=== PATIENT | female | born 1955 | race Caucasian/White ===

== ENCOUNTER 2020-01-12 09:08 | Outpatient (REF) | payer OTHER, SELFPAY ==
--- NOTE | 2020-01-12 09:19 | XR_ITS ---
EXAMINATION: XR HAND, LEFT CLINICAL INFORMATION: Pain left hand, pain left middle finger COMPARISON: Radiographs left hand/finger 07/28/2014 TECHNIQUE: Left hand is imaged in 3 views. FINDINGS: There is no acute or healing fracture, dislocation, destructive process. There is no interval focal joint narrowing or erosive change. No destructive process or periostitis. IMPRESSION: No acute bony abnormality.
== END 2020-01-12 09:09 | disposition home or self-care (01) ==
LOC: HO.XRAY 09:08
PROVIDERS: PCP Internal Medicine Medical Oncology; Visit Provider Internal Medicine Medical Oncology
DX: M79.642 Pain in left hand (principal); M79.645 Pain in left finger(s)
CPT/HCPCS: 73130

== ENCOUNTER 2020-02-23 10:18 | Outpatient (REF) | payer OTHER, SELFPAY ==
--- NOTE | 2020-02-23 | US_ITS ---
EXAMINATION: US ABDOMEN COMPLETE CLINICAL INFORMATION: Abdominal pain. COMPARISON: CT abdomen and pelvis 06/25/2017. Ultrasound abdomen 09/16/2015. TECHNIQUE: Real-time imaging of the abdominal viscera. FINDINGS: PANCREAS: The head and body the pancreas are normal. The tail is not well seen due to bowel gas. ABDOMINAL AORTA: The proximal, mid, and distal segments are normal in caliber. INFERIOR VENA CAVA: Visualized portions are normal. LIVER: Liver echotexture is increased probably representing fatty infiltration. There is a focal hypoechoic area adjacent to the gallbladder, characteristic location of focal fatty sparing. No focal hepatic lesion. There is no intrahepatic biliary duct dilatation seen. GALLBLADDER: There are gallstones in the gallbladder. There is layering echogenic bile seen in the gallbladder. The gallbladder wall appears thickened measuring 0.5 cm. The sleep technologist reports the patient is tender over the gallbladder. The gallbladder is normal in size. There is no pericholecystic fluid. COMMON BILE DUCT: Normal in caliber measuring 0.6 cm in diameter. RIGHT KIDNEY: Normal. No hydronephrosis. No renal calculi or focal parenchymal lesions. The kidney measures 9.7 cm in maximum dimension. LEFT KIDNEY: Normal. No hydronephrosis. No renal calculi or focal parenchymal lesions. The kidney measures 11.1 cm in maximum dimension. SPLEEN: Normal. The spleen measures 8.0 cm in maximum dimension. FREE FLUID: None. US/US abdomen complete IMPRESSION: Echogenic liver suggestive of fatty infiltration. Gallstones. Thickened gallbladder wall questionable for cholecystitis. Limited visualization of the tail the pancreas.
[2020-02-23 13:50] LABS: MANUAL DIFF FLAG NO
[2020-02-23 13:54] LABS: Basophils Percent Auto 0.5 % (0-2); Eosinophils Absolute Auto 0.3 X10*3/uL (0.0-0.4); Eosinophils Percent Auto 5.3 % (0-4); Hematocrit 39.2 % (37-47); Hemoglobin 12.5 g/dl (12.0-16.0); Imm Gran Abs Auto 0.01 X10*3/uL (0.00-0.03); Imm Gran Pct Auto 0.2 % (0.0-0.4); Lymphocytes Absolute Auto 2.5 X10*3/uL (1.2-4.9); Lymphocytes Percent Auto 39.4 % (20-40); Mean Corpuscular HGB Conc 31.9 g/dl (31.0-35.0); Mean Corpuscular Hemoglobin 28.5 pg (27.0-33.0); Mean Corpuscular Volume 89.3 fL (80-98); Mean Platelet Volume 10.9 fL (9.4-12.3); Monocytes Absolute Auto 0.6 X10*3/uL (0.1-1.2); Monocytes Percent Auto 8.9 % (2-11); Neutrophils Absolute Auto 2.9 X10*3/uL (2.0-8.3); Neutrophils Percent Auto 45.7 % (45-73); Platelet Count 281 X10*3/uL (160-400); Red Blood Count 4.39 X10*6/uL (4.20-5.50); Red Cell Distribution Width 13.2 % (11.0-16.0); White Blood Count 6.3 X10*3/uL (4.8-10.8)
[2020-02-23 14:49] LABS: Alanine Aminotransferase 23 U/L (0-31); Albumin Level 4.3 g/dL (3.5-5.0); Alkaline Phosphatase 85 U/L (39-117); Anion Gap 11 (12-20); Aspartate Amino Transferase 21 U/L (5-31); Bilirubin Total 0.5 mg/dL (0.0-1.0); Blood Urea Nitrogen 14 mg/dL (9-16); Calcium 8.9 mg/dL (8.4-10.2); Carbon Dioxide 29 mmol/L (22-29); Chloride 105 mmol/L (96-108); Cholesterol 239 mg/dL; Estimated Glomerular Filt Rate > 60; Glucose Fasting 78 mg/dL (60-99); HDL Cholesterol 59 mg/dL; LDL Cholesterol Calculated 157 mg/dl; Potassium 4.4 mmol/l (3.3-5.1); Sodium 141 mmol/L (135-145); Total Protein 7.6 g/dL (6.5-8.0); Triglycerides 118 mg/dL
== END 2020-02-23 10:19 | disposition home or self-care (01) ==
LOC: HO.HMGCX 10:18
PROVIDERS: PCP Internal Medicine Medical Oncology; Visit Provider Internal Medicine Medical Oncology
DX: E78.5 Hyperlipidemia, unspecified (principal); E66.9 Obesity, unspecified; R10.9 Unspecified abdominal pain
CPT/HCPCS: 36415; 76700; 80053; 80061; 85025

== ENCOUNTER → 2020-03-15 12:40 | Outpatient (REF) | payer OTHER, SELFPAY ==
--- NOTE | 2020-03-15 | NM_ITS ---
EXAMINATION: HIDA SCAN. CLINICAL INFORMATION: Right upper quadrant pain. Gallstones. COMPARISON: Ultrasound abdomen complete 02/23/2020 TECHNIQUE: Following intravenous administration of 5 mCi of 90 9M technetium mebrofenin, imaging over right upper quadrant was obtained up to 120 minutes. FINDINGS: There is normal hepatic uptake without any focal defect. There is prompt visualization of common bile duct 20 minutes and small bowel by 23 minutes. Gallbladder is not visualized up to twice. No CCK was given. No delayed images were obtained as patient preferred to leave NM/NM hepatobiliary wo pharm IMPRESSION: Normal hepatic uptake. Patent CBD. Cystic duct was not visualized up to 2 hours likely secondary to chronic cholecystitis. No delayed images obtained.
== END ==
LOC: HO.NUCMED 12:40
PROVIDERS: Visit Provider Internal Medicine Medical Oncology
DX: R10.11 Right upper quadrant pain (principal); K80.20 Calculus of gallbladder without cholecystitis without obstruction
CPT/HCPCS: 78226; A9537

== ENCOUNTER → 2020-03-24 09:03 | Outpatient (BNVA) | payer OTHER, SELFPAY | PROVIDERS: PCP Internal Medicine Medical Oncology; Visit Provider Surgery | DX: Z76.89 Persons encountering health services in other specified circumstances (principal) ==

== ENCOUNTER 2020-03-30 08:40 | Day surgery (SDC) | payer OTHER, SELFPAY ==
[2020-03-29 11:48] VITALS: BMI 31.2
--- NOTE | 2020-03-29 13:15 | HO.ANESPROP2 ---
Documented by User: Shweta Sotelo 03/29/20 13:18 HPI - Anesthesia Eval Consult details Narrative: 64yo F for Cholecystectomy Laparoscopic PMFSH Past Medical History Medical History History of pneumonia Hyperlipidemia Family History Family History Mother Breast cancer metastasized to bone Father Diabetes Paternal Uncle Colon cancer, Onset Age: 49 Paternal Uncle Pancreatic cancer Surgical History Surgical History History of breast lump/mass excision History of knee surgery History of tonsillectomy History of tubal ligation Social History Social History Smoking Status: Never smoker Second Hand Smoke Exposure: No Use of substances other than those prescribed or required for medical reasons: No Advance Directives: No Advance Directives Information Provided: No Advance Directives on File: No Meds Allergies Allergy/AdvReac Type Severity Reaction Status Date / Time codeine [CODEINE] Allergy Unknown HIVES Verified 03/30/20 08:47 Home Medications Medication Instructions Recorded Confirmed Type albuterol sulfate 90 mcg/actuation 2 puff INHALATION Q6H PRN 03/24/20 03/24/20 History aerosol inhaler loratadine 10 mg tablet 10 mg PO DAILY 03/24/20 03/24/20 History omeprazole 40 mg capsule,delayed 40 mg PO DAILY 03/24/20 03/24/20 History release Exam Exam Date and Time: March 29, 2020 1315 Height,Weight and Vital Signs: Height 5 ft 1 in Weight 75 kg Pertinent Lab Results Pertinent Lab Results: Laboratory Tests 02/23/20 02/23/20 11:15 11:15 WBC 6.3 Hgb 12.5 Hct 39.2 Plt Count 281 Sodium 141 Potassium 4.4 Chloride 105 Carbon Dioxide 29 BUN 14 Creatinine 0.81 Assessment and Plan Assessment Anesthesia Assessment: Chart Reviewed Documented by User: Jean Marie Dasilva 03/30/20 11:22 [facility] Past Medical History Medical History History of pneumonia Hyperlipidemia Family History Family History Mother Breast cancer metastasized to bone Father Diabetes Paternal Uncle Colon cancer, Onset Age: 49 Paternal Uncle Pancreatic cancer Family history of problems with anesthesia: No Surgical History Surgical History History of breast lump/mass excision History of knee surgery History of tonsillectomy History of tubal ligation History of Problems with Anesthesia: No Social History Social History Smoking Status: Never smoker Second Hand Smoke Exposure: No Use of substances other than those prescribed or required for medical reasons: No Advance Directives: No Advance Directives Information Provided: No Advance Directives on File: No Meds Allergies Allergy/AdvReac Type Severity Reaction Status Date / Time codeine [CODEINE] Allergy Unknown HIVES Verified 03/30/20 08:47 Home Medications Medication Instructions Recorded Confirmed Type albuterol sulfate 90 mcg/actuation 2 puff INHALATION Q6H PRN 03/24/20 03/24/20 History aerosol inhaler loratadine 10 mg tablet 10 mg PO DAILY 03/24/20 03/24/20 History omeprazole 40 mg capsule,delayed 40 mg PO DAILY 03/24/20 03/24/20 History release Exam Airway Mallampati Class: I TM Dist: >3cm Neck ROM: Full Loose/Missing/Broken Teeth: No Heart: ok Lungs: ok Assessment and Plan Assessment Anesthesia Assessment: Anesthesia Plan Discussed and Chart Reviewed Final Anesthetic Review NPO: Yes ASA Class: II Final Preanesthetic Review: No Changes in Pt Med Stat, Meds/Allgs Chart Reviewed, Consent Obtained/Reviewed and Anes Risks/Benef Reviewed Patient Risk: Low Procedure Risk: Intermediate Anesthetic Plan Anesthetic Plan: GA and Agree w/ Assess. and Plan Disposition: Standard PACU
[2020-03-30] VITALS (14 sets, daily range): BP systolic 132–179; BP diastolic 56–86; PULSE 55–77; RESP 16–18; TEMP 36.2–36.9; O2SAT 93–98
[2020-03-30] MEDS: Acetaminophen 325 MG TABLET 650 MG PO (09:22)
[2020-03-30] MEDS: Lactated Ringers 1,000 ML 100 ML IVCONT (09:24)
--- NOTE | 2020-03-30 09:25 | MHC.SHP ---
Pre-Procedural Eval Section A The patient is an INPATIENT: No Changes since office visit: Yes Patient answered all questions; No Cold of Flu in the past 2 weeks, No New Medical Problems and No Changes in Medication The History & Physical has been completed within 30 days and I have reviewed it.: Yes Section B Chief Complaint: Chronic calculous cholecystitis Allergies: Allergies Allergy/AdvReac Type Severity Reaction Status Date / Time codeine [CODEINE] Allergy Unknown HIVES Verified 03/30/20 08:47 Plan I have reviewed the history and physical and performed a pertinent physical examination on my patient. No changes have occurred unless specified.
--- NOTE | 2020-03-30 13:11 | W.PM.OPN ---
Operative Note Operative Note Date of Service: 03/30/20 Narrative: Preoperative diagnosis: chronic calculous cholecystitis Postoperative diagnosis: Same Procedure: Laparoscopic cholecystectomy Outsewer: None Anesthesia: General endotracheal Specimen: Gallbladder Estimated blood loss: 10 cc Immediate complications: None Indications: This is a 64-year-old female with a history of intermittent episodes of upper abdominal pain. Workup revealed gallstones with thickening of the gallbladder wall. Procedure in detail: With patient in the supine position after induction of adequate general anesthesia, the abdomen was prepped with ChloraPrep and was draped sterilely. Time-out procedure was performed. Each trocar site was infiltrated with local anesthetic prior to making incisions. A short vertical incision was made beginning in the inferior aspect of the umbilicus and continuing inferiorly for a length of about 12 mm. The incision was deepened down to the level of the fascia. The fascia was elevated in the midline with Georgina clamp and holding sutures of 0 Polysorb were placed on either side. The Georgina was then released and the fascia was split in the midline. The peritoneal cavity was entered. The Zhang trocar was inserted and stabilized with the fascial sutures. The abdomen was insufflated with carbon dioxide to pressure 15 mm of mercury. The 0 degree 5 mm laparoscopic was inserted and the peritoneal cavity was visualized. No abnormalities were noted. The patient was repositioned in reverse Trendelenburg and was rotated slightly left side down. 5 mm trocars were placed just to the right of the midline about a quarter of the way between the xiphoid and umbilicus, in approximately the midclavicular line a few cm below the costal margin and in the anterior axillary line just below the costal margin. The omentum was swept caudad using a Tabby dissector inserted through the upper medial trocar. The gallbladder was visualized. It appeared slightly thickened. There was some adherent omentum. It was grasped along the fundus at the anterior liver margin using a blunt grasper and was retracted cephalad. Adhesions between omentum and gallbladder were taken down with a combination of gentle blunt and cautery dissection. There was no significant bleeding. A 2nd blunt grasper was then placed along the infundibulum and the gallbladder was retracted laterally. Dissection was initiated on the anterior aspect of the infundibulum and was carried medially to expose the cystic duct gallbladder junction. The cystic duct was dissected free circumferentially. It appeared that there is a small branch of cystic artery running along the anterior aspect of the cystic duct. Dissection was carried posteriorly and along the medial margin of the gallbladder. A posterior branch of cystic artery was identified and also was dissected free circumferentially. The anterior aspect of the gallbladder and cystic duct was then again inspected and the anterior branch of cystic artery was carefully dissected free from the cystic duct. It was doubly clipped along the medial aspect, singly clipped along the gallbladder side and divided between clips. The cystic duct was inspected. It appeared wide. The 5 mm clips were not adequate to fully occlude the cystic duct. The extra-large clips were employed. The laparoscopic was removed and reinserted through the upper medial trocar and the extra large clip black top raker was inserted through the Zhang trocar and advanced into the right upper quadrant. The cystic duct was then triply clipped along the patient's side, doubly clipped along the gallbladder side and divided between clips. The clip black top raker was then removed and the laparoscopic was placed back through the has son. The posterior branch of cystic artery was divided with 2 5 mm clips placed on the patient's side and 1 on the gallbladder side. The artery was then divided between clips. The gallbladder was dissected free from the liver bed using the cautery hook. One additional small branch of artery was identified posteriorly and was divided between clips. No significant bleeding was encountered. Before the gallbladder was completely freed, the liver bed was inspected and irrigated with saline solution. Clips were intact on the cystic duct and cystic artery stumps. There was no evidence of bleeding. The remaining attachments between gallbladder and liver bed were divided using the cautery hook. The laparoscopic was placed back through the upper medial trocar and the specimen pouch was inserted through the umbilical trocar and advanced into the right upper quadrant. The gallbladder was placed into the pouch and the pouch was closed and withdrawn along with the Zhang trocar. The Zhang was then reinserted and the laparoscope was placed back through it. Gallbladder bed was again inspected and irrigated with saline solution. Clips again were noted to be intact and there was no evidence of bleeding. Patient was returned to the supine position. Upper abdominal trocars were removed under direct vision. No bleeding was seen. Insufflation was discontinued and gas was let is given the peritoneal cavity. The Zhang trocar was removed. Fascia at the Zhang site was closed with a hhtcyh-yc-eomdo suture of 0 Polysorb and the holding sutures were tied together. Skin incisions were closed with subcuticular sutures of 4-0 Polysorb. Steri-Strips and dry sterile dressings were applied. She tolerated the procedure well and was transported to the recovery room in stable condition. There were no immediate complications.
[2020-03-30] MEDS: Ketorolac Tromethamine 15 MG/ML VIAL IVPUSH (14:25)
[2020-03-30] MEDS: fentaNYL citrate/PF 100 MCG/2 ML VIAL 25 MCG IVPUSH (15:07)
== END 2020-03-30 16:50 | disposition home or self-care (01) ==
PROVIDERS: PCP Internal Medicine Medical Oncology; Visit Provider Surgery
PROC: 0FT44ZZ Resection of Gallbladder, Percutaneous Endoscopic Approach (ICD-10-PCS; CPT 47562; principal; 2020-03-30 10:10)
DX: K80.10 Calculus of gallbladder with chronic cholecystitis without obstruction (principal); K82.8 Other specified diseases of gallbladder; Z88.8 Allergy status to other drugs, medicaments and biological substances; Z98.51 Tubal ligation status
CPT/HCPCS: 47562; 88304; J1100; J1885; J2405; J3010

== ENCOUNTER → 2020-04-07 10:48 | Outpatient (BNVA) | payer OTHER, SELFPAY | PROVIDERS: PCP Internal Medicine Medical Oncology; Visit Provider Surgery | DX: Z76.89 Persons encountering health services in other specified circumstances (principal) ==

== ENCOUNTER 2020-10-06 10:46 | Outpatient (REF) | payer OTHER, SELFPAY ==
[2020-10-06 11:25] LABS: MANUAL DIFF FLAG NO
[2020-10-06 11:29] LABS: Basophils Percent Auto 0.5 % (0-2); Eosinophils Absolute Auto 0.1 X10*3/uL (0.0-0.4); Eosinophils Percent Auto 1.2 % (0-4); Hematocrit 43.3 % (37-47); Hemoglobin 13.7 g/dl (12.0-16.0); Imm Gran Abs Auto 0.01 X10*3/uL (0.00-0.03); Imm Gran Pct Auto 0.2 % (0.0-0.4); Lymphocytes Absolute Auto 1.7 X10*3/uL (1.2-4.9); Lymphocytes Percent Auto 28.6 % (20-40); Mean Corpuscular HGB Conc 31.6 g/dl (31.0-35.0); Mean Corpuscular Hemoglobin 28.1 pg (27.0-33.0); Mean Corpuscular Volume 88.9 fL (80-98); Mean Platelet Volume 10.7 fL (9.4-12.3); Monocytes Absolute Auto 0.5 X10*3/uL (0.1-1.2); Monocytes Percent Auto 8.4 % (2-11); Neutrophils Absolute Auto 3.7 X10*3/uL (2.0-8.3); Neutrophils Percent Auto 61.1 % (45-73); Platelet Count 254 X10*3/uL (160-400); Red Blood Count 4.87 X10*6/uL (4.20-5.50); Red Cell Distribution Width 13.2 % (11.0-16.0)
[2020-10-06 12:01] LABS: Alanine Aminotransferase 24 U/L (0-31); Albumin Level 4.3 g/dL (3.5-5.0); Alkaline Phosphatase 81 U/L (39-117); Anion Gap 12 (12-20); Aspartate Amino Transferase 22 U/L (5-31); Bilirubin Total 0.6 mg/dL (0.0-1.0); Blood Urea Nitrogen 8 mg/dL (9-16); Calcium 9.8 mg/dL (8.4-10.2); Carbon Dioxide 29 mmol/L (22-29); Chloride 105 mmol/L (96-108); Cholesterol 210 mg/dL; Estimated Glomerular Filt Rate 60; Glucose Fasting 98 mg/dL (60-99); HDL Cholesterol 49 mg/dL; LDL Cholesterol Calculated 137 mg/dl; Potassium 4.1 mmol/L (3.3-5.1); Sodium 142 mmol/L (135-145); Total Protein 7.7 g/dL (6.5-8.0); Triglycerides 121 mg/dL
[2020-10-06 12:23] LABS: Vitamin D 25-OH Total 29.3 ng/mL (>30)
== END 2020-10-06 10:47 | disposition home or self-care (01) ==
LOC: HO.LAB 10:46
PROVIDERS: PCP Internal Medicine Medical Oncology; Visit Provider Internal Medicine Medical Oncology
DX: E66.9 Obesity, unspecified (principal); E78.5 Hyperlipidemia, unspecified
CPT/HCPCS: 36415; 80053; 80061; 82306; 85025

== ENCOUNTER 2020-10-13 11:58 | Outpatient (REF) | payer OTHER, SELFPAY | END 2020-10-13 11:59 | disposition home or self-care (01) | LOC: HO.LNP 11:58 | PROVIDERS: Visit Provider Internal Medicine Medical Oncology | DX: Z12.4 Encounter for screening for malignant neoplasm of cervix (principal) | CPT/HCPCS: 88142 ==

== ENCOUNTER 2021-04-07 16:07 | Outpatient (REF) | payer OTHER, SELFPAY ==
--- NOTE | ~2021-04-07 | XR_ITS ---
EXAMINATION: XR CHEST CLINICAL INFORMATION: Pneumonia. COMPARISON: Chest x-ray 09/04/2018. CT scan abdomen pelvis 06/25/2017 TECHNIQUE: 2 views of the chest were obtained. FINDINGS: Persistent large hiatal hernia. No acute airspace disease. No pleural effusion or pneumothorax. Heart size is normal. No pulmonary vascular congestion. Surgical clips right upper quadrant of abdomen XR/XR chest 2V IMPRESSION: No acute abnormality of chest. Persistent large hiatal hernia.
== END 2021-04-07 16:08 | disposition home or self-care (01) ==
LOC: HO.XRAY 16:07
PROVIDERS: PCP Internal Medicine Medical Oncology; Visit Provider Internal Medicine Medical Oncology
DX: J18.9 Pneumonia, unspecified organism (principal)
CPT/HCPCS: 71046

== ENCOUNTER 2022-01-19 16:33 | Outpatient (REF) | payer OTHER, SELFPAY ==
[2022-01-19 18:19] LABS: Appearance Urine Clear; Color Urine Dark Yellow; Glucose Urine UA Negative (Negative); Leukocyte Esterase Urine Moderate (2+) (Negative); Nitrite Urine Positive (Negative); PH 5.5 (5.0-9.0); UMIC TRIGGER UA YES; Urine Blood Negative (Negative); Urine Ketones Negative (Negative); Urine Protein Trace mg/dL (Neg-Trace)
[2022-01-19 18:24] LABS: Bacteria Urine 1+ (None Seen); Hyaline Casts Urine 0-2 /LPF (0-2); RBC Urine 0-2 /HPF (0-2); WBC Urine 21-50 /HPF (0-5)
== END 2022-01-19 16:34 | disposition home or self-care (01) ==
LOC: HO.LAB 16:33
PROVIDERS: PCP Internal Medicine Medical Oncology; Visit Provider Internal Medicine Medical Oncology
DX: N39.0 Urinary tract infection, site not specified (principal)
CPT/HCPCS: 81001; 87086; 87088; 87186

== ENCOUNTER 2022-03-28 17:23 | Outpatient (REF) | payer OTHER, SELFPAY ==
--- NOTE | ~2022-03-28 | XR_ITS ---
EXAMINATION: XR CHEST CLINICAL INFORMATION: Persistent cough COMPARISON: 04/07/2021 TECHNIQUE: 2 views of the chest were obtained. FINDINGS: No convincing evidence for an acute process. The lung machuca are felt to be comparable to previous. Probable bowel herniation on the left is once again noted. The cardiac silhouette is comparable. The hilar structures are comparable. No evidence for an acute infiltrate or effusion. XR/XR chest 2V IMPRESSION: No acute finding
== END 2022-03-28 17:24 | disposition home or self-care (01) ==
LOC: HO.XRAY 17:23
PROVIDERS: PCP Internal Medicine Medical Oncology; Visit Provider Internal Medicine Medical Oncology
DX: R05.3 Chronic cough (principal); U07.1 COVID-19
CPT/HCPCS: 71046

== ENCOUNTER 2023-02-18 11:21 | Outpatient (REF) | payer OTHER, MEDICARE, SELFPAY ==
--- NOTE | ~2023-02-18 | XR_ITS ---
EXAMINATION: XR CHEST CLINICAL INFORMATION: Acute cough COMPARISON: March 28, 2022 TECHNIQUE: 2 views of the chest were obtained. FINDINGS: There is no gross pneumothorax. Stable cardiomediastinal silhouette partially obscured by asymmetrically elevated left lung base. Redemonstration of elevated left lung base with retrocardiac lucencies again seen, possibly related to the large hiatal hernia identified on CT scan of the abdomen and pelvis of June 25, 2017. No pleural effusion. Degenerative changes in the thoracic spine. Surgical clips in the right upper quadrant of the abdomen. No gross focal consolidation to suggest pneumonia. XR/XR chest 2V IMPRESSION: 1. No evidence of pneumonia. 2. Redemonstration of elevated left lung base with retrocardiac lucencies again seen, possibly related to the large hiatal hernia identified on CT scan of the abdomen and pelvis of June 25, 2017. CT scan should be considered for further evaluation. This study was presented today February 18, 2023 at 1:10 PM for interpretation. Stat results provided at this time as requested by referring provider.
== END 2023-02-18 11:22 | disposition home or self-care (01) ==
LOC: HO.XRAY 11:21
PROVIDERS: PCP Internal Medicine Medical Oncology; Visit Provider Internal Medicine Medical Oncology
DX: R05.1 Acute cough (principal)
CPT/HCPCS: 71046

== ENCOUNTER 2023-03-12 08:31 | Outpatient (REF) | payer OTHER, MEDICARE, SELFPAY ==
[2023-03-12 09:23] LABS: Blood Urea Nitrogen 11 mg/dL (9-16); Estimated Glomerular Filt Rate > 60
== END 2023-03-12 08:32 | disposition home or self-care (01) ==
LOC: HO.LAB 08:31
PROVIDERS: PCP Internal Medicine Medical Oncology; Visit Provider Surgery
DX: K44.9 Diaphragmatic hernia without obstruction or gangrene (principal)
CPT/HCPCS: 36415; 82565; 84520

== ENCOUNTER 2023-03-13 12:35 | Outpatient (REF) | payer OTHER, MEDICARE, SELFPAY ==
--- NOTE | ~2023-03-13 | CT_ITS ---
EXAMINATION: CT ABDOMEN WITH CONTRAST CLINICAL INFORMATION: Paraesophageal hernia COMPARISON: CT scan abdomen and pelvis 06/25/2017 TECHNIQUE: Contiguous axial thin section helical images of the abdomen were performed following the administration of oral contrast and 85 mL of Omnipaque 350 intravenous contrast. The data set was reformatted in the coronal and sagittal planes and reviewed on an independent workstation. This CT examination was performed using dose optimization techniques as appropriate, variously including the following: *Automated exposure control *Adjustment of mA and/or kV according to patient size (this includes techniques or standardized protocols for targeted exams where dose is matched to indication/reason for exam; i.e. extremities or head) *Use of iterative reconstruction technique DLP: 328.5 mGy-cm FINDINGS: LUNG BASES: There is atelectasis at the left lung base. There is herniation of the entire stomach which lies above the left hemidiaphragm with an opening in the left hemidiaphragm measuring 2.7 cm (11:49) LIVER, GALLBLADDER, AND BILIARY TREE: There is diffuse decreased attenuation of the liver compared to the spleen consistent with hepatic steatosis. The patient is status post cholecystectomy with surgical clips in the gallbladder fossa. The common duct measures 0.9 cm. PANCREAS: The pancreas is normal in appearance. SPLEEN: The spleen is normal size and appearance. ADRENAL GLANDS AND KIDNEYS: The adrenal glands and kidneys are normal. BOWEL LOOPS: There is no dilatation of large or small bowel. There is a large amount of stool within the visualized portions of the transverse and descending colon raising the question of constipation. There is slight diverticulosis without evidence of diverticulitis. LYMPH NODES: No abdominal lymphadenopathy. VASCULAR: The abdominal aorta is normal caliber with slight calcification indicative of atherosclerotic disease. BONES: No destructive bony lesion. CT/CT abdomen w IV con IMPRESSION: 1. 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 2. Hepatic steatosis. 3. Diverticulosis without evidence of diverticulitis. 4. Large amount of stool within the visualized portions of the transverse and descending colon raising the question of constipation. Fleischner guidelines were followed.
[2023-03-13] MEDS: iohexoL 350 MG/ML 100 ML INFUS..BTL IV (14:44)
[2023-03-13] MEDS: Barium Sulfate Oral (Berry) 450 ML ORAL.SUSP PO (14:45)
== END 2023-03-13 12:36 | disposition home or self-care (01) ==
LOC: HO.CT 12:35
PROVIDERS: PCP Internal Medicine Medical Oncology; Visit Provider Surgery
DX: K44.9 Diaphragmatic hernia without obstruction or gangrene (principal)
CPT/HCPCS: 71260; 74160; Q9967

== ENCOUNTER 2024-03-21 13:42 | Emergency (ER) | payer OTHER, SELFPAY ==
[2024-03-21] VITALS (10 sets, daily range): BP systolic 142–184; BP diastolic 80–126; PULSE 63–107; RESP 15–20; TEMP 36.4–36.9; O2SAT 95–99; BMI 33.2
--- NOTE | ~2024-03-21 | CT_ITS ---
CLINICAL HISTORY: dizziness, L sided numbness, off balance CT angiography of the head and neck with contrast. With MIP MPR Postprocessing. (with noncontrast head CT) Comparison: None Findings: Head CT without: No acute intracranial hemorrhage, midline shift, hydrocephalus. Basal ganglia calcifications noted. Gonzalez matter-white matter differentiation is adequate with question minimal white matter changes by CT. Cerebellar tonsils terminate at the level of the foramen magnum with mild crowding of the contents in the foramen magnum. No acute skull fracture. CTA head: No ICA or M1 occlusion. Anterior communicating artery is patent. Variant proximal MOHSEN and MCA branching. The basilar artery is patent. Proximal farm equipment service technician are unremarkable for technique and venous contamination. No opacified proximal intracranial arterial aneurysm. Metal and lucencies associated with multiple remaining imaged teeth. Neck: No significant stenosis of either internal carotid artery by NASCET criteria. Calcified and noncalcified plaque include aorta, carotid bulbs common carotid bifurcations. Left vertebral artery is dominant. Mild stenosis of the origin of both vertebral arteries. Retropharyngeal course of the right ICA. Streak artifacts secondary to metal of the mouth stenosis dental amalgam. Mild scarring motion of the lung apices with question mild edema or pneumonitis. Mild reversal cervical lordosis. IMPRESSION: Head CT without: No acute intracranial abnormality by CT CTA head: 1. No ICA or M1 occlusion. 2. The basilar artery is patent. Neck: 1. No significant stenosis of either internal carotid artery by NASCET criteria. 2. Calcified and noncalcified plaque include carotid bulbs and bilateral carotid bifurcations. 3. The left vertebral artery is dominant. 4. Retropharyngeal course of the right ICA. This document has been electronically signed by: Jose Quigley MD on 03/21/2024 21:13:42
--- NOTE | 2024-03-21 13:58 | ECG_ITS ---
Test Reason : DIZZINESS Blood Pressure : / mmHG Vent. Rate : 074 BPM Atrial Rate : 074 BPM P-R Int : 138 ms QRS Dur : 080 ms QT Int : 418 ms P-R-T Axes : 056 -05 030 degrees QTc Int : 463 ms Normal sinus rhythm Normal ECG No previous ECGs available Referred By: Generic ED Physician Electronically Signed By:Praveen Benjamin
--- NOTE | 2024-03-21 13:58 | PC.NURSE ---
to ED from home via EMS. pt has been feeling unwell for a few days and reports AGUILAR and dizziness. No CP or SOB. Today, pt noticed left facial numbness that goes down to her left leg. Lying in stretcher pt denies AGUILAR and dizziness and says the numbness comes and goes. EMS 20gIV in Left AC. No facial droop noted nor slurred speech. Pt speaking in full and complete sentences. Hand grasp equal bilaterally, no neurological deficits noted.
--- NOTE | 2024-03-21 14:21 | ED.NEUROSD ---
HPI - Neuro Symptoms/Deficit General Chief Complaint: Neuro Symptoms/Deficit Stated Complaint: LT SIDE FACE NUMB,-FAST Time Seen by Provider: 03/21/24 14:17 Source: patient and EMS Mode of arrival: EMS Limitations: no limitations History of Present Illness ED Provider: BARRY SADLER Narrative: 68 yo female with PMH of GERD, asthma, bronchitis, recent estrellita fundoplication with revision after stitch popped here with c/o 2 falls this month from dizziness never sought care then for past 3 days feels weird like her L side is off, dizziness and not herself. She has headache as well as L sided neck pain but denies new trauma/neck manipulation. She then noted this AM she started to feel tingling in L face and that her words were slurring but also then her face would twitch at the mouth her daughter notes she told her she had symptoms but then daughter admits she never saw them. No thinner use and was dx with HTN by PCP a month + ago and she was supposed to take metoprolol 25mg but she hasn't taken it in weeks she thought her initial fall was due to it and causing her to be dizzy Onset (ago): day(s) (few) Location: speech, left face, left arm, left leg and other (dizziness) History of same: No Severity: moderate Quality: tingling Relieving factors: none Exacerbating factors: none Context: recent fall On Anticoagulants: No Associated symptoms: denies other symptoms Treatments Prior to Arrival: none Related Data Home Medications ?Medication ?Instructions ?Recorded ?Confirmed albuterol sulfate 90 mcg/actuation 2 puff inhalation Q6H PRN 03/24/20 03/24/20 aerosol inhaler (Proventil HFA) loratadine 10 mg tablet (Allergy 10 mg PO DAILY 03/24/20 03/24/20 Relief (loratadine)) omeprazole 40 mg capsule,delayed 40 mg PO DAILY 03/24/20 03/24/20 release Previous Rx's ?Medication ?Instructions ?Recorded hydromorphone 2 mg tablet 2 mg PO Q4H PRN pain #10 tabs 03/30/20 Allergies Allergy/AdvReac Type Severity Reaction Status Date / Time codeine [CODEINE] Allergy Unknown HIVES Verified 03/21/24 13:57 Review of Systems Review of Systems: Constitutional : No Fever, No Chills, No Fatigue ENT/Mouth : No sore throat, No Rhinorrhea Eyes: No Eye Pain, No Swelling, No Redness Cardiovascular : No Chest Pain, No SOB, No Dyspnea on Exertion Respiratory : No Cough, No Sputum Gastrointestinal : No Nausea, No Vomiting, No Diarrhea, No abdominal Pain Genitourinary : No Dysuria, No Urinary Frequency, No Hematuria, Musculoskeletal : No joint pain, No Myalgias, No Joint Swelling Skin : No Skin Lesions, No rash Neuro : No Weakness, pos Numbness, pos Dizziness, positive Headache All other systems reviewed and are negative [facility] Past Medical History Attestation statement: The following information was validated with the patient. Source: old records reviewed Medical History Hyperlipidemia History of pneumonia Surgical History History of laparoscopic cholecystectomy History of breast lump/mass excision History of knee surgery History of tubal ligation History of tonsillectomy Family History Family History Mother Breast cancer metastasized to bone Father Diabetes Paternal Uncle Colon cancer, Onset Age: 49 Paternal Uncle Pancreatic cancer Social History Social History Smoked in Last 30 Days: No Second Hand Smoke Exposure: No Use of substances other than those prescribed or required for medical reasons: No Advance Directives: No Advance Directives Information Provided: Yes Physical Exam Vital Signs: Vital Signs: Last Vital Signs Temp 97.5 F 03/21/24 16:27 Pulse 70 03/21/24 16:27 Resp 15 03/21/24 16:27 BP 142/102 H 03/21/24 16:27 Pulse Ox 95 03/21/24 16:27 O2 Del Method Room Air 03/21/24 16:27 BMI result Body Mass Index 33.2 Appearance: Alert. Oriented X3. No acute distress. Eyes: Pupils equal, round and reactive to light. ENT: Pharynx normal. Neck: Normal inspection. Neck supple. CVS: Normal heart rate and rhythm. Pulses normal. Respiratory: No respiratory distress. Breath sounds normal. Abdomen: Soft and nontender. Skin: Skin warm and dry. Normal skin color. Normal skin turgor. Extremities: No lower extremity edema. No calf ttp Neuro: Oriented X 3. No motor deficit. No sensory deficit. Course Course Course Narrative: signed out to Dr. Liao pending workup Medical Decision Making Medical Decision Making [facility] Narrative: 68 yo female with PMH of GERD, asthma, bronchitis, HTN here with c/o 2 falls in one month due to dizziness took herself off metoprolol though BP has been high, today L sided facial contractures and tingling at this time she is NIH 0 on exam but her symptoms coming and going with elevated BP though not terribly high 150/100 this could be lyte abnormality, TIA, mass. I have ordered labs, EKG, CT scans for possible stroke, dissection. Differential Diagnosis Differential Diagnoses: The differential diagnosis associated with the presentation includes HTN, TIA, migraine, vert disssection Admission/Observation Consideration of admission/observation: Escalation of care including admission/observation considered Lab Data [facility] Lab Attestation statement: I reviewed the patient's lab results. 03/21/24 14:53 03/21/24 14:53 Labs: Lab Results 03/21/24 Range/Units 14:53 WBC 5.9 (4.8-10.8) X10*3/uL RBC 4.43 (4.20-5.50) X10*6/uL Hgb 12.3 (12.0-16.0) g/dl Hct 37.6 (37.0-47.0) % MCV 84.9 (80.0-98.0) fL MCH 27.8 (27.0-33.0) pg MCHC 32.7 (31.0-35.0) g/dl RDW 14.1 (11.0-16.0) % Plt Count 294 (160-400) X10*3/uL MPV 10.0 (9.4-12.3) fL Immature Gran % (Auto) 0.3 (0.0-0.4) % Neut % (Auto) 62.3 (45-73) % Lymph % (Auto) 27.0 (20-40) % [place] % (Auto) 7.3 (2-11) % Eos % (Auto) 2.6 (0-4) % Baso % (Auto) 0.5 (0-2) % Lymph # (Auto) 1.6 (1.2-4.9) X10*3/uL [place] # (Auto) 0.4 (0.1-1.2) X10*3/uL Eos # (Auto) 0.2 (0.0-0.4) X10*3/uL Baso # (Auto) 0.0 (0.0-0.2) X10*3/uL Abs Immat Gran (auto) 0.02 (0.00-0.03) X10*3/uL Absolute Neuts (auto) 3.7 (2.0-8.3) x10*3/uL Absolute Nucleated RBC 0.000 (0.0-0.012) X10*3/uL Nucleated RBC % (auto) 0.0 (0.0-0.2) /100WBC Smear Tech's Comments VERIFIED ESR 14 (0-20) MM/HR PT 10.2 L (10.9-12.4) SEC INR 0.9 (0.9-1.1) Sodium 140 (135-145) mmol/L Potassium 4.0 (3.3-5.1) mmol/L Chloride 108 (96-108) mmol/L Carbon Dioxide 26 (22-29) mmol/L Anion Gap 10 L (12-20) BUN 9 (9-16) mg/dL Creatinine 0.82 (0.5-1.4) mg/dL Estim Creat Clear Calc 64.4 Estimated GFR > 60 Random Glucose 96 (60-115) mg/dL Calcium 8.8 D (8.4-10.2) mg/dL Magnesium 2.0 (1.6-2.6) mg/dL Total Bilirubin 0.3 (0.0-1.0) mg/dL Direct Bilirubin 0.1 (0.0-0.5) mg/dL AST 22 (5-31) U/L ALT 17 (0-31) U/L Alkaline Phosphatase 88 (39-117) U/L Troponin I High Sens < 2.7 (<3.5-17.0) ng/L C-Reactive Protein 0.27 (< or = 0.50) mg/dL Total Protein 7.5 (6.5-8.0) g/dL Albumin 3.9 (3.5-5.0) g/dL Lipase 28 (8-78) U/L Independent Interpretation I performed an independent interpretation of an: EKG Interpretation: Rate: 74 Rhythm: NSR [place]: left Normal P waves. Normal MAURA. Normal QRS complex. ST T wave : normal no KAYCEE qTC: 463 prior studies: no acute ischemia The study has been interpreted contemporaneously by me. . Independent Historian Clinical information obtained from an independent historian. History obtained from or confirmed by: Other (daughter) External Record Review External record reviewed: Outpatient record NIH Stroke Scale Internal: Initial- Upon Arrival Level of Consciousness: Alert Level of Consciousness Questions: Answers both questions correctly Level of Consciousness Commands: Performs both tasks correctly Best Gaze: Normal Visual: No visual loss Facial Palsy: Normal Motor Arm (Right): No drift Motor Arm (Left): No drift Motor Leg (Right): No drift Motor Leg (Left): No drift Limb Ataxia: Absent Sensory: Normal Best Language: No aphasia Dysarthia: Normal Extinction and Inattention: No abnormality Score: 0 Discharge Plan Discharge Clinical Impression: Dizziness Patient Disposition: Still a Patient Prescriptions: No Action hydromorphone 2 mg tablet 2 mg PO Q4H PRN (Reason: pain) Qty: 10 0RF omeprazole 40 mg capsule,delayed release(DR/EC) 40 mg PO DAILY albuterol sulfate [Proventil HFA] 90 mcg/actuation HFA aerosol inhaler 2 puff inhalation Q6H PRN loratadine [Allergy Relief (loratadine)] 10 mg tablet 10 mg PO DAILY Print Language: Mozambican
[2024-03-21 15:04] LABS: Basophils Percent Auto 0.5 % (0-2); Eosinophils Absolute Auto 0.2 X10*3/uL (0.0-0.4); Eosinophils Percent Auto 2.6 % (0-4); Imm Gran Abs Auto 0.02 X10*3/uL (0.00-0.03); Imm Gran Pct Auto 0.3 % (0.0-0.4); MANUAL DIFF FLAG SCAN; Mean Corpuscular Volume 84.9 fL (80.0-98.0); PLT CLUMP 1; SCAN SMEAR FLAG 1
[2024-03-21 15:06] LABS: Hematocrit 37.6 % (37.0-47.0); Hemoglobin 12.3 g/dl (12.0-16.0); INTERNATIONAL NORM RATIO 0.9 (0.9-1.1); Lymphocytes Absolute Auto 1.6 X10*3/uL (1.2-4.9); Mean Corpuscular HGB Conc 32.7 g/dl (31.0-35.0); Mean Corpuscular Hemoglobin 27.8 pg (27.0-33.0); Monocytes Absolute Auto 0.4 X10*3/uL (0.1-1.2); Monocytes Percent Auto 7.3 % (2-11); Neutrophils Absolute Auto 3.7 x10*3/uL (2.0-8.3); Neutrophils Percent Auto 62.3 % (45-73); Prothrombin Time 10.2 SEC (10.9-12.4); Red Blood Count 4.43 X10*6/uL (4.20-5.50); Red Cell Distribution Width 14.1 % (11.0-16.0)
[2024-03-21 15:15] LABS: Alanine Aminotransferase 17 U/L (0-31); Albumin Level 3.9 g/dL (3.5-5.0); Alkaline Phosphatase 88 U/L (39-117); Anion Gap 10 (12-20); Aspartate Amino Transferase 22 U/L (5-31); Bilirubin Direct 0.1 mg/dL (0.0-0.5); Bilirubin Total 0.3 mg/dL (0.0-1.0); Blood Urea Nitrogen 9 mg/dL (9-16); C Reactive Protein 0.27 mg/dL (< or = 0.50); Calcium 8.8 mg/dL (8.4-10.2); Carbon Dioxide 26 mmol/L (22-29); Chloride 108 mmol/L (96-108); Creatinine Clr Calc Pharmacy 64.4; Estimated Glomerular Filt Rate > 60; Glucose Random 96 mg/dL (60-115); Lipase 28 U/L (8-78); Sodium 140 mmol/L (135-145); Total Protein 7.5 g/dL (6.5-8.0)
[2024-03-21 15:26] LABS: Platelet Count 294 X10*3/uL (160-400); White Blood Count 5.9 X10*3/uL (4.8-10.8)
[2024-03-21 15:27] LABS: SLIDE REVIEW VERIFIED
[2024-03-21 15:32] LABS: Troponin-I High Sensitivity < 2.7 ng/L (<3.5-17.0)
[2024-03-21 15:33] LABS: Erythrocyte Sedimentation Rate 14 MM/HR (0-20)
--- NOTE | 2024-03-21 19:38 | MHC.EDTECH ---
This tech took over care of patient at 1900,rounded and introduced self to pt,vitals taken,BP is elevated 180/102,RN/MD were made aware,patient told T/W that she has a headache,lights were dimmed and RN was made aware,call vora in reach
--- NOTE | 2024-03-21 20:27 | PC.NURSE ---
there has been a several hour delay in CT scans today due to multiple technical challenges with CT and radiology. pt taken to CT scan now. Reporting AGUILAR. no changes in neuro function - continuing to report on/off facial numbness. No facial deficits or other deficits noted
[2024-03-21] MEDS: iohexoL 350 MG/ML 100 ML INFUS..BTL 70 ML IV (20:48)
== END 2024-03-21 21:23 | disposition home or self-care (01) ==
PROVIDERS: Emergency Medicine; Emergency Provider Internal Medicine; PCP Internal Medicine Medical Oncology
DX: R42 Dizziness and giddiness (principal); R51.9 Headache, unspecified; R29.700 NIHSS score 0; J45.909 Unspecified asthma, uncomplicated; Z79.899 Other long term (current) drug therapy
CPT/HCPCS: 36415; 70496; 70498; 80048; 80076; 83690; 83735; 84484; 85025; 85610; 85652; 86140; 93005; 99284; Q9967

== ENCOUNTER → 2024-03-21 13:58 | Outpatient (BNV) | payer OTHER, SELFPAY | PROVIDERS: Emergency Provider Internal Medicine; PCP Internal Medicine Medical Oncology; Visit Provider Internal Medicine Cardiovascular Disease | DX: R42 Dizziness and giddiness (principal) | CPT/HCPCS: 93010 ==

== ENCOUNTER 2024-07-06 09:57 | Outpatient (REF) | payer OTHER, SELFPAY ==
--- NOTE | ~2024-07-06 | XR_ITS ---
EXAMINATION: XR CHEST CLINICAL INFORMATION: CHRONIC COUGH COMPARISON: None available. TECHNIQUE: 2 views of the chest were obtained. FINDINGS: Lungs are well-expanded and clear of acute process. There is lingular atelectasis. There is no pleural effusion or pneumothorax. Heart size and pulmonary vascularity is normal. No gross bony abnormality seen. XR/XR chest 2V IMPRESSION: Unremarkable chest x-ray Electronically signed by: Fuentes Ramirez MD 07/06/2024 10:42 AM EDT
--- OUTSIDE RECORDS SUMMARY | 2024-07-06 11:14 | XMS_ITS ---
Author Organization [facility] Address [address] [place] [id number] Care Team Providers Care Lining Cutter Name Role Phone Oksana MOSS, Manuel Primary Care Provider Unavailab Manuel [facility] [phone] REASON FOR VISIT Patient presents today for a colon screening Encounters Encounter Location Date Provider Diagnosis [facility] [address] [place] [phone] 02/12/2024 Manuel Dominguez Plan Of Treatment No Information Progress Notes * KAT WOLFEEDOB:1955 (68 yo F)Acc No.[id number]:02/12/2024 Progress Notes Patient:?NUNU WOLFE Provider:?Manuel Dominguez MD :1955???Age:68 Y???Sex:Female D ate:02/12/2024 Address:[address] [place] [address] [address] [id number] Pcp:Manuel Gandhi MD Subjective: * Chief Complaints: * ???1. Patient presents today for a colon screening. * Medical History:? Objective: * Vitals:? Assessment: Plan: * Treatment: * * The named appointment provid er may or may not be the originator of this progress note, and it is not deemed complete until electronically signed by the appointment provider. Sign off status: Pending * Provider:?Manuel Dominguez MD Date:? 024 Generated for Grey montez/Jazmin/eTransmitting on:?07/06/2024 11:14 AM EDT
--- OUTSIDE RECORDS SUMMARY | 2024-07-06 11:14 | XMS_ITS ---
Author Organization Manuel Gandhi III, MD Address [address] [place] [address] Care Team Providers Care Director Independent Name Role Phone Manuel Gandhi Primary Care Provider [phone] REASON FOR VISIT Tested Covid Medications Medication SIG (Take, Route, Frequency, Duration) Notes Start Date End Date Status Paxlovid (300/100) 20 x 150 MG & 10 x 100MG 3 tablets Orally Twice a day for 5 days gfr is over 60 03/21/2024 06/09/2024 Active Encounters Encounter Location Date Provider Diagnosis Manuel Gandhi III, MD [address] [place] [address] [place] [address] 06/09/2024 Manuel Gandhi Plan Of Treatment Medication Medication Name Sig Start Date Stop Date Notes Paxlovid (300/100) 20 x 150 MG & 10 x 100MG 3 tablets Orally Twice a day for 5 days 06/09/2024 gfr is over 60 03/21/2024 Next Appt Details Provider Name:Manuel Gandhi, 07/06/2024 01:30:00 PM, [address] [facility], [address], Provider Name:Manuel Gandhi, 08/06/2024 09:00:00 AM, [address] [place] [address] [place], [address], Progress Notes * Katelynn PINEDAOB:1955 (68 yo F)Acc No.[id number]:06/09/2024 Patient:?Shae PINEDA :1955???Age:68 Y???Sex:Female Address: [address], [address] [place], [place], [address] * Refills? Start Paxlovid (300/100) Tablet Therapy Pack, 20 x 150 MG & 10 x 100MG, Orally, 30, 3 tablets, Twice a day, 5 days, Refills=0 * true * Date:? Generated for Grey montez/Jazmin/eTransmitting on:?07/06/2024 11:14 AM EDT
--- OUTSIDE RECORDS SUMMARY | 2024-07-06 11:14 | XMS_ITS | Clinical Summary ---
Author Organization [facility] Address [address] [place] [address] Phone Care Team Providers Care Gis Database Administrator Name Role Phone Josias Gandhi MD Primary Care Provider [phone] Social History Tobacco Use Types Packs/Day Years Used Date Smoking Tobacco: Never Assessed Comments Unknown Sex and Gender Information Value Date Recorded Sex Assigned at Female 07/02/2024 12:58 PM EDT Legal Sex Female 10:23 PM EST Gender Identity Female 07/02/2024 12:58 PM EDT Sexual Orientation Straight 07/02/2024 12 :58 PM EDT Plan of Treatment Upcoming Encounters Date Type Department Care Team (Late st Contact Info) Description 07/09/2024 9:00 AM EDT Appointment [facility] [address] [address] Health Maintenance Due Date Last Done Comments DTaP,Tdap,and Td Vaccines (1 - Tdap) 1976 Pneumococcal Vaccine: 50+ Years (1 of 1 - PCV) 12/12/2007 Zoster Vaccines (1 of 2) 12/12/2007 Colorectal Cancer Screening: Colonoscopy 02/24/2022 Depression Screening 02/24/2022 Hepatitis C Screening 02/24/2022 Osteoporosis Screening (Bone Density Screening) 02/24/2022 Social Influencers of Health Screening 02/24/2022 Falls Risk Assessment 2022 Breast Cancer Screening 07/11/2023 07/11/19 22, 12/29/2019 COVID-19 Vaccine ( - 2023-2 5 season) 2023 Influenza Vaccine (Season Ended) 2024 RSV Immunization Adult Patients (1 - 1-dose 75+ series) 2032 HIB Vaccines Aged Out No longer eligi ble based on patient's age to complete this topic HPV Vaccines Aged Out No longer eligi ble based on patient's age to complete this topic Hepatitis A Vaccines Aged Out No long er eligible based on patient's age to complete this topic Hepatitis B Vaccines Aged Out No long er eligible based on patient's age to complete this topic IPV Vaccines Aged Out No longer eligi ble based on patient's age to complete this topic MMR Vaccines Aged Out No longer eligi ble based on patient's age to complete this topic Meningococcal ACWY Vaccine Aged Out N o longer eligible based on patient's age to complete this topic Meningococcal B Vaccine Aged Out No l onger eligible based on patient's age to complete this topic RSV Immunization Patients Under 20 months Aged Out No longer eligible b ased on patient's age to complete this topic Varicella Vaccines Aged Out No longer eligible based on patient's age to complete this topic Procedures Procedure Name Priority Date/Time Associated Diagnosis Comments [facility] SCREENING DIGITAL Routine 07/10/2021 11:44 AM EDT Encounter for screening mammogram for malignant neoplasm of breast from Last 3 Months or Most Recently Relevant to Health Maintenance Results * [facility] SCREENING [facility]IGITAL (07/10/2021 11:44 AM EDT) Anatomical Region Laterality Modality Mammography 07/10/2021 7:43 AM EDT Narrative 07/10/2021 11:44 AM EDT [facility] Diagnostic Imaging Department [address] [place] [id number] Patient: ??NUNU PINEDA ?/Age/Sex: 1955 - 65 - F Unit#: ??[id number] ? Location/Status: ??SPDIMAM/REG CLI ? Mnemonic/Ordering Site: ??DIGSC/SPMAM Ordering Physician: ??JOSIAS GANDHI MD [facility] Digital - 07/10/21817 EXAM: [facility] Digital EXAM DATE AND TIME: 07/10/2021 8:18 AM HISTORY: ??Screening. Right breast biopsy in 1985. Mother had breast carcinoma at age 87. COMPARISON: ??12/29/19, 02/24/16, 07/27/14 TECHNIQUE: CC and MLO views of both breasts were obtained using full field digital mammography. Bilateral digital breast tomosynthesis was performed in the MLO projection. Computer aided detection with the [employer] was employed. TISSUE DENSITY: c. The breasts are heterogeneously dense, which may obscure small masses. FINDINGS: No suspicious masses, grouped microcalcifications, or areas of architectural distortion are seen. The skin and vascularity are unremarkable. IMPRESSION: Stable mammographic appearance of the breasts. ??No evidence of malignancy is seen. A negative mammogram in the presence of a clinically suspicious palpable abnormality does not preclude the possibility of malignancy or alter the indications for biopsy. BI-RADS: ??Category 1: Negative RECOMMENDATION(S): 1: Routine screening mammogram BILATERAL in 1 year. 15825, 21082 3341F, 7025F Dictating Physician: ??MAGALI GARNER MD Electronically Signed by: ??MAGALI GARNER MD Dic Date/Time: ??07/10/21 1143 Sign date/Time: ??07/10/21 1144 Procedure Note Magali Garner MD - 03/14/2022 [facility] Diagnostic Imaging Department [address] [place], [place] [id number] Patient: NUNU PINEDA /Age/Sex: 1955 - 65 - F Unit#: [id number] Location/Status: [facility] CLI Mnemonic/Ordering Site: [facility] Ordering Physician: JOSIAS GANDHI MD [facility] Screening Digital - 07/10/21817 EXAM: [facility] Screening Digital EXAM DATE AND TIME: 07/10/2021 8:18 AM HISTORY: Screening. Right breast biopsy in 1985. Mother had breastcarcinoma at age 87. COMPARISON: 12/29/19, 02/24/16, 07/27/14 TECHNIQUE: CC and MLO views of both breasts were obtained using fullfield digital mammography. Bilateral digital breast tomosynthesis was performedin the MLO projection. Computer aided detection with the SLID 7.2-Hwas employed. TISSUE DENSITY: c. The breasts are heterogeneously dense, which mayobscure small masses. FINDINGS: No suspicious masses, grouped microcalcifications, or areas ofarchitectural distortion are seen. The skin and vascularity are unremarkable. IMPRESSION: Stable mammographic appearance of the breasts. No evidence of malignancyis seen. A negative mammogram in the presence of a clinically suspicious palpable abnormality does not preclude the possibility of malignancy or alter the indications for biopsy. BI-RADS: Category 1: Negative RECOMMENDATION(S): 1: Routine screening mammogram BILATERAL in 1 year. 56903, 22682 3341F, 7025F Dictating Physician: MAGALI GARNER MD Electronically Signed by: MAGALI GARNER MD Dic Date/Time: 07/10/21 1143 Sign date/Time: 07/10/21 1144 Josias Gandhi MD IMG BI PROCEDURES Final Result from Last 3 Months or Most Recently Relevant to Health Maintenance Insurance MEDICARE [facility] [address] [place] [address] Care Teams Gis Database Administrator Relationship Specialty Start Date End Date Josias Gandhi MD [address] [facility] [address] [place] [phone] PCP - General Oncology 03/19/24
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
--- OUTSIDE RECORDS SUMMARY | 2024-07-06 11:14 | XMS_ITS ---
Author Organization [facility] Address [address] [place] [phone] Care Team Providers Care Physical Education Department Chair Name Role Phone Oksana MOSS, Manuel Primary Care Provider Unavailab Manuel Eubanks [facility] [phone] REASON FOR VISIT Patient presents today for a screening colon Encounters Encounter Location Date Provider Diagnosis [facility] [address] [place] [phone] 10/16/2023 Manuel Dominguez Plan Of Treatment No Information Progress Notes * KAT WOLFEEDOB:1955 (68 yo F)Acc No.[id number]:10/16/2023 Progress Notes Patient:?NUNU WOLFE Provider:?Manuel Dominguez MD :1955???Age:67 Y???Sex:Female D ate:10/16/2023 Address:[address] [place] [address] [address] [id number] Pcp:Manuel Gandhi MD Subjective: * Chief Complaints: * ???1. Patient presents today for a screening colon. * Medical History:? Objective: * Vitals:? Assessment: [...]
--- OUTSIDE RECORDS SUMMARY | 2024-07-06 11:14 | XMS_ITS ---
Author Organization [facility] Address [address] [place] [phone] Care Team Providers Care Lottery Clerk Name Role Phone Oksana MOSS, Manuel Primary Care Provider Unavailab Manuel Eubanks Unavailable [phone] REASON FOR VISIT bronchitis/unable to make todays appt Encounters Encounter Location Date Provider Diagnosis [facility] [address] [place] [phone] 02/12/2024 Manuel Dominguez Plan Of Treatment No Information Progress Notes * YANETHKATEDOB:1955 (68 yo F)Acc No.[id number]:02/12/2024 Patient:?NUNU WOLFE :1955???Age:68 Y???Sex:Female [facility] [place], [address] * true * Date:? Generated for Darlyni melida/Jazmin/eTransmitting on:?07/06/2024 11:13 AM EDT
--- OUTSIDE RECORDS SUMMARY | 2024-07-06 11:15 | XMS_ITS | Data Portability ---
Author Organization [facility], [address] Address [address] [place] [address] Care Team Providers Care Quality Assistant Name Role Phone JOSIAS RASMUSSEN Primary Care Provider Assessment No assessment recorded. Plan of Treatment Reminders Order Date Submit Date Provider Last Modified By Organization Details Last Modified Time Details Appointments None recorded. Lab None recorded. Referral None recorded. Procedures None recorded. Surgeries None recorded. Imaging None recorded. Medication Orders [facility] 20 mg tablet [id number] [address] [place], [address], 09:19:08 benzonatate 200 mg capsule 2021 [id number], [address] [place], [address], 09:19:10 Flovent HFA 220 mcg/actuati on aerosol inhaler 2021 [id number], [address] [place], [address], 09:19:10 Allergy Relief (fluticason e) 50 mcg/actuati on nasal spray,suspe nsion 2021 [id number] [address] [place], [address], 09:19:07 Patient TargetsNo targets recorded. Patient Instructions Encounter Date Encounter Id Patient Instructions Last Modified By Organization Details Last Modified Time 03/24/2022 [id number] cough: care instructions Not available 03/24/2022 09:19:03 Acute bronchitis is a condition of the lower airway with self-limited inflammation that will eventually resolve on it's own. It is usually caused by a viral infection in 95% of cases, therefore an antibiotic is not needed. Unfortunately, these symptoms can persist for approximately 3 weeks, with occasional persistence for 4-6 weeks. Treatment for bronchitis is aimed at focusing on helping to relieve your symptoms and you can implement the following remedies below, as long as they do not interfere with your current medications, past medical history, or go against advice you have received from your primary care provider and/or a specialist. If you are concerned you can always ask a pharmacist your primary care provider prior to their use. Not available 03/24/2022 09:18:52 Patient instruct ed on worsening signs and symptoms that would require further evaluation by ED or PCP such as fever of 101.0 or greater, congestion accompanied with coughing, vomiting, diarrhea, abdominal pain, decreased oral intake, lethargy, or other new symptom(s) experienced not discussed during this visit. Use humidifier and ensure good hydration. If you experience new concerning symptoms, shortness of breath, respiratory distress, or chest pain go to the ER. Use the medications prescribed. May use Decongestants if tolerated and no history of elevated blood pressure or Diabetes. Use saline nasal saline and Flonase daily for1 week. You may use tylenol for pain/fever. Do not take prednisone with Ibuprofen. Get some extra rest. When should you call for help? Call anytime you think you may need emergency care. For example, call if: You have severe trouble breathing. Call your doctor now or seek immediate medical care if: You have new or worse trouble breathing. You cough up dark brown or bloody mucus (sputum). You have a new or higher fever. You have a new rash. Watch closely for changes in your health, and be sure to contact your doctor if: You cough more deeply or more often, especially if you notice more mucus or a change in the color of your mucus. You are not getting better as expected. Not available 03/24/2022 09:19:01 Reason for Referral None Reported. Problems Name Problem SNOMED Code Status Onset Date Resolution Date Notes Provider Name and Address Organization Details Recorded Time Gastroesophage al reflux disease 878683278 Active 2021 SIERRA DEPINTO null, [place] - [facility] 08:57:08 Depressive disorder 09629382 Active 2021 SIERRA DEPINTO null, [place] - [facility] 08:57:28 Problem Notes None recorded. Procedures Surgical History Date Name Laterality Status Provider Name and Address Organization Details Recorded Time 03/25/19 cholecystectomy completed SIERRA DEPINTO PA - [facility] 03/24/2022 08:58:19 tonsillectomy completed SIERRA DEPINTO PA - [facility] 03/24/2022 08:58:27 ligation of fallopian tube completed SIERRA DEPINTO PA - [facility] 03/24/2022 08:58:47 Knee arthroscopy/surgery completed SIERRA DEPINTO PA - [facility] 03/24/2022 08:59:16 Imaging Results None recorded. Procedure Notes None recorded. Medical Equipment None Reported. Allergies Allergen ID Allergen Name Allergen Category Reaction Reaction Severity Criticality Documentation Date Start Date Code Code System Note Provider Name and Address Organization Details Recorded Time 94661 codeine medicatio n hives Not available Not available 03/24/2022 2670 RxNorm SIERRA DEPINTO null, [place] - [facility] 2 08:55:35 Medications Name Sig Start Date Stop Date Status Note LastModified by Organization Details LastModified Time azithromyci n 250 mg tablet TAKE 2 TABLETS BY MOUTH TODAY, THEN TAKE 1 TABLET DAILY FOR 4 DAYS 03/24 completed Not Available Not Available Not Available benzonatate 200 mg capsule Take 1 capsule 3 times a day by oral route for 7 days. 2021 active Not Available Not Available Not Avai lable prednisone 20 mg tablet Take 2 tablets every day by oral route in the morning for 5 days. 2021 active Not Available Not Available Not Avai lable sulfamethox azole 800 mg-trimetho prim 160 mg tablet TAKE 1 TABLET BY MOUTH TWICE A DAY FOR 10 DAYS 03/24 completed Not Available Not Available Not Available omeprazole 40 mg capsule,del ayed release TAKE 1 CAPSULE BY MOUTH EVERY DAY active Not Available Not Available No t Available lorazepam 0.5 mg tablet TAKE 1 TABLET BY MOUTH TWICE A DAY FOR 15 DAYS NEEDED (TAKE 1 DOSE AT BEDTIME) 03/24 completed Not Available Not Available Not Available lorazepam 1 mg tablet USE DIRECTED TWICE A DAY FOR 15 DAYS 03/24 completed Not Available Not Available Not Available levofloxaci n 500 mg tablet TAKE 1 TABLET BY MOUTH EVERY DAY FOR 10 DAYS 03/24 completed Not Available Not Available Not Available fluoxetine 20 mg capsule TAKE 1 CAPSULE BY MOUTH EVERY DAY active Not Available Not Available No t Available fluticasone propionate 50 mcg/actuati on nasal spray,suspe nsion SPRAY 1 SPRAY TWICE A DAY NEEDED active Not Available Not Available No t Available Flovent HFA 220 mcg/actuati on aerosol inhaler Inhale 2 puffs twice a day by inhalatio n route for 30 days. 2021 active Not Available Not Available Not Avai lable Proventil HFA active Not Available Not Available Not Available Paxlovid 300 mg (150 mg x 2)-100 mg tablets in a dose pack TAKE 3 TABLETS BY MOUTH TWICE A DAY FOR 5 DAYS 03/24 completed Not Available Not Available Not Available Vitals Date Recorded Body height Body mass index (BMI) Body weight Oxygen saturation Oxygen saturation in Arterial blood by Pulse oximetry Heart rate Pain severity - 0-10 verbal numeric rating [Score] - Reported Respiratory rate Body temperature Systolic blood pressure Diastolic blood pressure Provider Name and Address Organization Details Last Updated DateTime 2 154.94 cm 27.8 kg/m2 64764.0 8 g 98 % 98 % 65 /min 0 19 /min 97.4 [degF] 141 mm[Hg] 84 mm[Hg] SIERRA SÁNCHEZ [place] - [facility] 09:00:51 Social History Question Answer Notes LastModified by Organizat ion Details LastModified Time Tobacco Smoking Status Never Smoker SIERRA kim PA - [facility] 03/24/2022 08:58:01 What Is Your Level Of Alcohol Consumption? None Information not available 03/24/2022 Do You Use Any Illicit Or Recreational Drugs? No Information not available 03/24/2022 Have You Recently Traveled Abroad? No Information not available 03/24/2022 Do You Or Have You Ever Used Any Other Forms Of Tobacco Or Nicotine? No Information not available 03/24/2022 Sex: Unknown Functional Status None recorded. Mental Status None recorded. Family History Relationship Description Onset Age of this Age Resolved Age Notes LastModified by Organization Details LastModified Time Mother Malignant tumor of breast Not available 2021 08:57:45 Medical History No medical history recorded. Gynecological HistoryNo gynecological history recorded. Obstetrics History GPAL:G 0 P 0 0 0 0 Past Encounters Encounter ID Performer Location Encounter Start Date Encounter Closed Date Diagnosis/Indication Diagnosis SNOMED-CT Code Diagnosis ICD10 Code Diagnosis Note [id number] [address] [address] 02/20/2016 10:25:45 02/20/2016 12:00:17 [id number] Andres Robertson [place] [address] [address] 03/24/2022 08:45:56 03/24/2022 09:37:59 Acute bronchitis 82542332 J20.9 Health Concerns Section Related Observation LastModified by Organization Detai ls LastModified Time None Recorded Concern Status LastModified by Organization Details LastModified Time None Recorded Advance Directives Directive None Recorded Payers Encounter Date Sequence Insurance Name Policy Number Policy Meyers Covered Member ID Meyers Member ID Guarantor Name 02/20/2016 1 [facility] [id number] Shae [place] [id number] Shae Miiram 03/24/[address] [place] [address] [id number] Shae [place] [id number] [facility] Miriam Notes Date Note Type Note Provider Name and Address Organization Details Recorded Time 03/24/2022 text/html CoughReported bypatient.Notes:con gested coughing x 7 days coughing up phlegm . nasal congestion and post nasal drip. Andres Robertson NP [address] [place], [address], [place] - [facility] 03/24/2022 09:19:26 OBGyn Episode No OBEpisode recorded.
--- OUTSIDE RECORDS SUMMARY | 2024-07-06 11:15 | XMS_ITS ---
Author Organization Manuel Gandhi III, MD Address 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 Role Phone Manuel Gandhi Primary Care Provider [phone] Allergies Allergen (clinical drug ingredient) Drug/Non Drug Allergy documented on EMR Reaction Allergy Type Onset Date Status codeine Codeine Sulfate hives Drug Allergy A ctive REASON FOR VISIT Sick Medications Medication SIG (Take, Route, Frequency, Duration) Notes Start Date End Date Status Ondansetron HCl 4 MG 1 tablet Orally silvana ry four hours prn nausea 04/01/2023 Active LORazepam 0.5 MG 1 tablet at bedtime as needed Orally Twice a day 05/18/2021 Active Triamcinolone Acetonide 0.1 % 1 application Externally Two times a day 05/19/2024 Active predniSONE 20 MG 1 tablet Orally Once a day 05/19/2024 Active Metoprolol Succinate ER 25 MG 1 tablet Orally Once a day 06/04/2023 Active Omeprazole 40 MG 1 capsule 30 minutes before morning meal Orally Once a day Active Paxlovid (300/100) 20 x 150 MG & 10 x 100MG 3 tablets Orally Twice a day gfr is over 60 03/21/2024 06/09/2024 Active FLUoxetine HCl 20 MG TAKE 1 CAPSULE BY MOUTH EVERY DAY Active Social History Tobacco Use: Social History Observation Description Date Details (start date - stop date) Former Smoker NA - NA Tobacco Use/Smoking Question Answer Notes Patient is a former smoker How long has it been since you last smoked? > 10 years Additional Findings: Tobacco Non-User Ex-cigaret te smoker Vital Signs Height 61 in 07/06/2024 Weight 169 lbs 07/06/2024 BMI 31.93 kg/m2 07/06/2024 Encounters Encounter Location Date Provider Diagnosis Manuel Gandhi III, MD [address] [place] [address] [place] [address] 07/06/2024 Manuel Gandhi Obesity, unspecified classification, unspecified obesity type, unspecified whether serious comorbidity present E66.9 and Chronic cough R05.3 Assessments Encounter Date Diagnosis (ICD Code) Assessment Notes Treatment Notes Treatment Clinical Notes 07/06/2024 Obesity, unspecified classification, unspecified obesity type, unspecified whether serious comorbidity present (ICD-10 - E66.9) Her body mass index is 31.9. I recommended stabilizing her weight at this level until the issue of cholecystitis has been resolved and then aggressive weight loss A1 amp per week. 07/06/2024 Chronic cough (ICD-10 - R05.3) Plan Of Treatment Medication Medication Name Sig Start Date Stop Date Notes Ondansetron HCl 4 MG 1 tablet Orally silvana ry four hours prn nausea 04/01/2023 LORazepam 0.5 MG 1 tablet at bedtime as needed Orally Twice a day 05/18/2021 Triamcinolone Acetonide 0.1 % 1 application Externally Two times a day 05/19/2024 predniSONE 20 MG 1 tablet Orally Once a day 05/19/2024 Metoprolol Succinate ER 25 MG 1 tablet Orally Once a day 06/04/2023 Omeprazole 40 MG 1 capsule 30 minutes before morning meal Orally Once a day Paxlovid (300/100) 20 x 150 MG & 10 x 100MG 3 tablets Orally Twice a day 06/09/2024 gfr is over 60 03/21/2024 FLUoxetine HCl 20 MG TAKE 1 CAPSULE BY M OUTH EVERY DAY Pending Test Test Name Order Date XR CHEST 2 VIEW PA & LAT 07/06/2024 Next Appt Details Provider Name:Manuel Gandhi, 07/06/2024 01:30:00 PM, [address] [place] [address] [address] PEDRO, [place], [address], Provider Name:Manuel Gandhi, 08/06/2024 09:00:00 AM, [address] [place] [address] KAYCEE PEDRO, MICHELLE JOSHI, [address], Progress Notes * YANETH, DianneDOB:1955 (68 yo F)Acc No.[id number]:07/06/2024 Progress Notes Patient:?Shae PINEDA Provider:?Manuel Gandhi MD :1955???Age:68 Y???Sex:Female D ate:07/06/2024 Address:[address] [place] [address], [place] , [place] [id number] Subjective: * Chief Complaints: * ???1. Sick. * ROS:?General/Constitutional:?pain?only normal aches and pains.?Chills?denies.?Fatigue?admits.?Fever?denies.?ENT:?Decreased hearing?denies.?Respiratory:?Cough?denies.?Cardiovascular:?Chest pain with exertion?denies.?Dyspnea on exertion?denies.?Shortness of breath?denies.?Gastrointestinal:?Constipation?denies.?Decreased appetite?denies.?Diarrhea?denies.?Heartburn?denies.?Nausea?denies.?Rectal bleeding?denies.?Vomiting?denies.?Hematology:?bruising?denies.?petechiae?denies.?Swollen glands?none have been noted.?Genitourinary:?Frequent urination?denies.?Musculoskeletal:?Muscle aches?denies.?Painful joints?denies.?Sciatica?denies.?Weakness?denies.?Skin:?Itching?denies.?Rash?denies.?Skin lesion(s)?denies.?Neurologic:?Difficulty speaking?denies.?Dizziness?denies.?Headache?denies.?Low back pain?denies.?Psychiatric:?Depressed mood?denies.? * Medical History:?Obesity, An xiety, Depression, Hyperlipidemia, Former smoker, GERD, Hiatal hernia, Cholelithiasis, pneumonia August 2014, right upper lobe, lingular pneumonia June 2017, Declines colonoscopy, History of cervical radiculopathy, Hiatal hernia, Covid 12 March 2021, Essential hypertension. * Surgical History:?Maljamar michael th X4 extraction , Tonsillectomy , tubal ligation , biopsy right breast benign disease , left knee arthroscopy after a fall , Gall stones 03/2020, cholecystectomy, Dr. Kohli, [facility], cholelithiasis 03/2020, No history . * Hospitalization/Major Diagno stic Procedure:?No history . 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 She is and has 2 children, Kate and Timmy, a daughter and a son. She has 5 grandchildren. * Medications:?Taking FLUoxeti ne HCl 20 MG Capsule TAKE 1 CAPSULE BY MOUTH EVERY DAY , Taking Omeprazole 40 MG Capsule Delayed Release 1 capsule 30 minutes before morning meal Orally Once a day , Taking LORazepam 0.5 MG Tablet 1 tablet at bedtime as needed Orally Twice a day , Taking Ondansetron HCl 4 MG Tablet 1 tablet Orally every four hours prn nausea , Taking Metoprolol Succinate ER 25 MG Tablet Extended Release 24 Hour 1 tablet Orally Once a day , Taking predniSONE 20 MG Tablet 1 tablet Orally Once a day , Taking Triamcinolone Acetonide 0.1 % Cream 1 application Externally Two times a day , Taking Paxlovid (300/100) 20 x 150 MG & 10 x 100MG Tablet Therapy Pack 3 tablets Orally Twice a day , Notes to Pharmacist: gfr is over 60 03/21/2024, Medication List reviewed and reconciled with the patient * Allergies:?Codeine Sulfate: hives - Allergy. Objective: * Vitals:?Ht: 61, Wt:169, BMI: 31.93, Ht-cm: 154.94, Wt-k.66. * Examination: ???General Examination: ?GENERAL APPEARANCE:?pleasant, well nourished, well developed, in no acute distress, calm and relaxed.?HEAD:?atraumatic, normocephalic.?EYES:?eomi, perrla, anicteric, conjugate.?EARS:?normal.?NOSE:?septum intact.?ORAL CAVITY:?normal, unremarkable.?NECK/THYROID:?no jugular venous distention, no carotid bruit, thyroid normal.?LYMPH NODES:?no enlarged lymph nodes,spleen normal.?SKIN:?no suspicious lesions, anicteric.?HEART:?no clicks, gallops, murmurs, or rubs, regular rhythm, S1, S2 normal, no s3, or vascular bruits.?LUNGS:?clear to auscultation .?BREASTS:??no masses palpable bilaterally.?ABDOMEN:?bowel sounds normal, no ascites, no organomegaly, no mass.?RECTAL EXAM:?not examined.?MUSCULOSKELETAL:?extremities unremarkable, no clubbing, cyanosis or edema.?PERIPHERAL PULSES:?normal.?NEUROLOGIC:?alert and oriented, cranial nerves 2-12 grossly intact, deep tendon reflexes 2+ symmetrical, motor strength normal upper and lower extremities, sensory exam intact.?PSYCH:?alert, oriented.? Assessment: * Assessment: 1.?Obesity, unspecified clas sification, unspecified obesity type, unspecified whether serious comorbidity present - E66.9???Notes :Her body mass index is 31.9. I recommended stabilizing her weight at this level until the issue of cholecystitis has been resolved and then aggressive weight loss A1 amp per week.???2.?Chronic cough - R05.3??? Plan: * Treatment: 2.?Chronic cough?Imaging: XR CHEST 2 VIEW PA & LAT 3.?Others? Continue FLUoxetine HCl Capsule, 20 MG, TAKE 1 CAPSULE BY MOUTH EVERY DAY;?Continue Paxlovid (300/100) Tablet Therapy Pack, 20 x 150 MG & 10 x 100MG, 3 tablets, Orally, Twice a day, Notes to Pharmacist: gfr is over 60 03/21/2024.?? * Procedure Codes:?24726 SYNCH AUDIO-ONLY EST SF 10 * Preventive Medicine:? ??Counseling:?Care goal follow-up plan:?Counseling [...] done: Medical or Other reason not done * Images: * The named appointment provid er may or may not be the originator of this progress note, and it is not deemed complete until electronically signed by the appointment provider. Sign off status: Pending * Provider:?Manuel Gandhi MD Date:?06/23 Generated for Grey montez/Jazmin/Paulitting on:?07/06/2024 11:15 AM EDT History and Physical Notes * Examination Category Sub-Category Detail Notes General Examination GENERAL APPEARANCE: pleasant , well nourished, well developed, in no acute distress, calm and relaxed HEAD: atraumatic, normocep halic EYES: eomi, perrla, anicte scottie, conjugate EARS: normal NOSE: septum intact NECK/THYROID: no jugular venous di stention, no carotid bruit, thyroid normal HEART: no clicks, gallops, murmurs, or rubs, regular rhythm, S1, S2 normal, no s3, or vascular bruits LUNGS: clear to auscultatio n ABDOMEN: bowel sounds normal, no ascites, no organomegaly, no mass NEUROLOGIC: alert and oriented, cranial nerves 2-12 grossly intact, deep tendon reflexes 2+ symmetrical, motor strength normal upper and lower extremities, sensory exam intact SKIN: no suspicious lesion s, anicteric PERIPHERAL PULSES: normal BREASTS: no masses palpable b ilaterally MUSCULOSKELETAL: extremities unremark able, no clubbing, cyanosis or edema LYMPH NODES: no enlarged lymph no ta,spleen normal RECTAL EXAM: not examined PSYCH: alert, oriented ORAL CAVITY: normal, unremarkable
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
--- OUTSIDE RECORDS SUMMARY | 2024-07-06 11:15 | XMS_ITS | Patient Health Record ---
Author Organization 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 Name Role Phone Manuel Gandhi MD Primary Care Provider Unavailab Manuel Eubanks Unavailable [phone] Reason For Referral No Information Encounters Encounter Location Date Provider Diagnosis [facility] [address] [place] [phone] 10/15/2023 Manuel Dominguez [facility] [address] [place] [phone] 02/12/2024 Manuel Dominguez Plan Of Treatment No Information Insurance Providers Payer Name Payer Address Payer Phone Subscriber Number Group Number Insured Name Patient Relationship to Insured Coverage Start Date Coverage End Date [facility] [address] [place] [address] [phone] [id number] NUNU WOLFE Self - patient is the insured MEDICARE OF [place] [address] [place] [address] [id number] NUNU WOLFE Self - patient is the insured
== END 2024-07-06 09:58 | disposition home or self-care (01) ==
LOC: HO.XRAY 09:57
PROVIDERS: PCP Internal Medicine Medical Oncology; Visit Provider Internal Medicine Medical Oncology
DX: R05.3 Chronic cough (principal)
CPT/HCPCS: 71046

== ENCOUNTER → 2024-07-06 10:03 | Outpatient (BNV) | payer OTHER, MEDICARE, SELFPAY | PROVIDERS: PCP Internal Medicine Medical Oncology; Visit Provider Radiology Diagnostic Radiology | DX: R05.3 Chronic cough (principal) | CPT/HCPCS: 71046 ==

== ENCOUNTER 2024-07-06 17:07 | Outpatient (REF) | payer OTHER, SELFPAY ==
--- OUTSIDE RECORDS SUMMARY | 2024-07-06 18:36 | XMS_ITS | Clinical Summary ---
Author Organization [facility] Address [address] [place] [address] Phone Care Team Providers Care Sheriff Detective Name Role Phone Josias Gandhi MD Primary Care Provider [phone] Social History Tobacco Use Types Packs/Day Years [...] AM EDT [facility]ointment [facility] at [address] [address] Health Maintenance Due Date Last [...] Procedure Name Priority Date/Time Associated Diagnosis Comments [facility] SCREEN[facility] Routine 07/10/2021 11:44 AM EDT Encounter for screening mammogram for malignant neoplasm of breast from Last 3 Months or Most Recently Relevant to Health Maintenance Results * [facility] SCRE[facility] (07/10/2021 11:44 AM EDT) Anatomical Region Laterality Modality Mammography 07/10/2021 7:43 AM EDT Narrative 07/10/2021 11:44 AM EDT [facility] Diagnostic Imaging Department [address] [place] [id number] Patient: ??NUNU PINEDA ?/Age/Sex: 1955 - 65 - F Unit#: ??[id number] ? Location/Status: ??SPDIMAM/REG CLI ? Mnemonic/Ordering Site: [...] MLO projection. 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 TISSUE DENSITY: c. The breasts [...] Routine screening mammogram BILATERAL in 1 year. [address], [address] 3341F, 7025F Dictating Physician: ??MAGALI GARNER MD Electronically Signed by: ??MAGALI GARNER MD Dic Date/Time: ??07/10/21 1143 Sign date/Time: ??07/10/21 1144 Procedure Note Magali Garner MD - 03/14/2022 [facility] Diagnostic Imaging Department [address] [place], [place] [id number] Patient: NUNU PINEDA /Age/Sex: 1955 - 65 - F Unit#: [id number] Location/Status: [facility] CLI Mnemonic/Ordering Site: [facility] Ordering Physician: JOSIAS GANDHI MD [facility] Screening Digital - 07/10/21817 EXAM: [facility] Screening Digital EXAM DATE AND TIME: 07/10/2021 8:18 AM HISTORY: Screening. Right breast biopsy in 1985. Mother had breastcarcinoma at age 87. COMPARISON: 12/29/19, 02/24/16, 07/27/14 TECHNIQUE: CC and MLO views of both breasts were obtained using fullfield digital mammography. Bilateral digital breast tomosynthesis was performedin the MLO projection. 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 7.2[employer]Hwas employed. TISSUE DENSITY: c. The breasts [...] Routine screening mammogram BILATERAL in 1 year. [address], [address] 3341F, 7025F Dictating Physician: MAGALI GARNER MD Electronically Signed by: MAGALI GARNER MD Dic Date/Time: 07/10/21 1143 Sign date/Time: 07/10/21 1144 Josias Gandhi MD IMG BI PROCEDURES Final Result from Last 3 Months or Most Recently Relevant to Health Maintenance Insurance [facility]ICARE [facility] [address] [place] [address] Care Teams Sheriff Detective Relationship Specialty Start Date End Date Josias Gandhi MD [address] [facility] [address] [place] [phone] PCP - General Oncology 03/19/24
== END 2024-07-06 17:08 | disposition home or self-care (01) ==
LOC: HO.LNP 17:07
PROVIDERS: Visit Provider Internal Medicine Medical Oncology
DX: J02.8 Acute pharyngitis due to other specified organisms (principal)
CPT/HCPCS: 87070

== ENCOUNTER 2024-09-15 16:48 | Outpatient (REF) | payer OTHER, SELFPAY ==
--- OUTSIDE RECORDS SUMMARY | 2024-02-12 11:40 | XMS_ITS ---
Author Organization [facility] Address [address] [place] [phone] Care Team Providers Care Property Portfolio Officer Name Role Phone Oksana MOSS, Manuel Primary Care Provider Unavailab Manuel Eubanks [phone] REASON FOR VISIT Patient presents today for a colon screening Encounters Encounter Location Date Provider Diagnosis [facility] [address] [place] [phone] 02/12/2024 Manuel Dominguez Plan Of Treatment No Information Progress Notes * KAT WOLFEEDOB:1955 (68 yo F)Acc No.[id number]:02/12/2024 Progress Notes Patient: NUNU GREGG Provider: Carmita Dominguez MD :1955 A ge:68 Y S ex:Female Date:02/12/2024 Address:[address] [place] [address] [id number] Pcp:Manuel Gandhi MD Subjective: * Chief Complaints: * 1 . Patient presents today for a colon screening. * Medical History: Objective: * Vitals: Assessment: Plan: * Treatment: * * The named appointment provid er may or may not be the originator of this progress note, and it is not deemed complete until electronically signed by the appointment provider. Sign off status: Pending * Provider: Carmita Dominguez MD Date: 04/13/2023 Generated for Grey montez/Jazmin/eTransmitting on: 0 09/15/2024 07:09 PM EDT
--- NOTE | ~2024-09-15 | XR_ITS ---
EXAMINATION: XR CHEST CLINICAL INFORMATION: CHRONIC COUGH COMPARISON: July 06, 2024 TECHNIQUE: 2 views of the chest were obtained. FINDINGS: Linear density in the left costophrenic angle is likely scarring and/or atelectasis, similar to the prior. Lungs are clear otherwise. Heart size is within normal limits. There is no evidence of pleural effusion. XR/XR chest 2V IMPRESSION: No acute disease Electronically signed by: Nain Ornelas MD 09/15/2024 05:51 PM EDT
== END 2024-09-15 16:49 | disposition home or self-care (01) ==
LOC: HO.XRAY 16:48
PROVIDERS: PCP Internal Medicine Medical Oncology; Visit Provider Internal Medicine Medical Oncology
DX: R05.3 Chronic cough (principal)
CPT/HCPCS: 71046

== ENCOUNTER → 2024-09-15 16:57 | Outpatient (BNV) | payer OTHER, SELFPAY | PROVIDERS: PCP Internal Medicine Medical Oncology; Visit Provider Radiology Diagnostic Radiology | DX: R05.3 Chronic cough (principal) | CPT/HCPCS: 71046 ==

== ENCOUNTER 2024-09-16 12:21 | Outpatient (REF) | payer OTHER, SELFPAY ==
--- OUTSIDE RECORDS SUMMARY | 2024-02-12 11:40 | XMS_ITS ---
Author Organization [facility] Address [address] [place] [phone] Care Team Providers Care Certified Registered Nurse Anesthetist Name Role Phone Oksana MOSS, Manuel Primary Care Provider Unavailab Manuel Eubanks [phone] REASON FOR VISIT Patient presents today for a colon screening Encounters Encounter Location Date Provider Diagnosis [facility] [address] [place] [phone] 02/12/2024 Manuel Dominguez Plan Of Treatment No Information Progress Notes * KAT WOLFEEDOB:1955 (68 yo F)Acc No.[id number]:02/12/2024 Progress Notes Patient: NUNU GREGG Provider: Carmita Dominguez MD :1955 A ge:68 Y S ex:Female Date:02/12/2024 Address:[address] [place] [address] [id number] Pcp:Manuel Gandhi MD Subjective: * Chief Complaints: [...] Dominguez MD Date: 04/13/2023 Generated for Grey montez/Jazmin/eTchinyeresmitting on: 0 09/16/2024 02:24 PM EDT
[2024-09-16 12:30] LABS: MANUAL DIFF FLAG NO
[2024-09-16 13:40] LABS: Basophils Absolute Auto 0.1 X10*3/uL (0.0-0.2); Basophils Percent Auto 0.6 % (0-2); Eosinophils Absolute Auto 0.4 X10*3/uL (0.0-0.4); Eosinophils Percent Auto 4.4 % (0-4); Hematocrit 36.3 % (37.0-47.0); Hemoglobin 11.6 g/dl (12.0-16.0); Imm Gran Abs Auto 0.02 X10*3/uL (0.00-0.03); Imm Gran Pct Auto 0.3 % (0.0-0.4); Lymphocytes Absolute Auto 2.4 X10*3/uL (1.2-4.9); Lymphocytes Percent Auto 30.1 % (20-40); Mean Corpuscular Hemoglobin 27.2 pg (27.0-33.0); Mean Platelet Volume 10.1 fL (9.4-12.3); Monocytes Absolute Auto 0.7 X10*3/uL (0.1-1.2); Monocytes Percent Auto 8.5 % (2-11); Neutrophils Absolute Auto 4.4 x10*3/uL (2.0-8.3); Neutrophils Percent Auto 56.1 % (45-73); Platelet Count 399 X10*3/uL (160-400); Red Blood Count 4.27 X10*6/uL (4.20-5.50); Red Cell Distribution Width 14.5 % (11.0-16.0); White Blood Count 7.9 X10*3/uL (4.8-10.8)
[2024-09-16 14:33] LABS: Alanine Aminotransferase 34 U/L (0-31); Albumin Level 4.3 g/dL (3.5-5.0); Alkaline Phosphatase 123 U/L (39-117); Anion Gap 13 (12-20); Aspartate Amino Transferase 39 U/L (5-31); Bilirubin Total 0.4 mg/dL (0.0-1.0); Blood Urea Nitrogen 6 mg/dL (9-16); Calcium 9.4 mg/dL (8.4-10.2); Carbon Dioxide 26 mmol/L (22-29); Chloride 102 mmol/L (96-108); Estimated Glomerular Filt Rate > 60; Glucose Random 88 mg/dL (60-115); Potassium 3.9 mmol/L (3.3-5.1); Sodium 137 mmol/L (135-145); Total Protein 8.1 g/dL (6.5-8.0)
== END 2024-09-16 12:22 | disposition home or self-care (01) ==
LOC: HO.LAB 12:21
PROVIDERS: PCP Internal Medicine Medical Oncology; Visit Provider Internal Medicine Medical Oncology
DX: E66.9 Obesity, unspecified (principal); E78.5 Hyperlipidemia, unspecified
CPT/HCPCS: 36415; 80053; 85025

== ENCOUNTER 2024-12-08 07:25 | Outpatient (REF) | payer OTHER, SELFPAY ==
--- OUTSIDE RECORDS SUMMARY | 2023-10-16 10:20 | XMS_ITS ---
Author Organization [facility] Address [address] [place] [id number] Care Team Providers Care Counseling Case Manager Name Role Phone Oksana MOSS, Manuel Primary Care Provider Unavailab Manuel Eubanks [phone] REASON FOR VISIT Patient presents today for a screening colon Encounters Encounter Location Date Provider Diagnosis [facility] [address] [place] [phone] 10/16/2023 Manuel Dominguez Plan Of Treatment No Information Progress Notes * KAT WOLFEEDOB:1955 (68 yo F)Acc No.[id number]:10/16/2023 Progress Notes Patient: NUNU GREGG Provider: Carmita Dominguez MD :1955 A ge:67 Y S ex:Female Date:10/16/2023 Address:[address] [place] [address] [address] [facility]aur[id number] Pcp:Manuel Gandhi MD Subjective: * Chief Complaints: * 1 . Patient presents today for a screening colon. * Medical History: Objective: * Vitals: Assessment: Plan: * Treatment: * * The named appointment provid er may or may not be the originator of this progress note, and it is not deemed complete until electronically signed by the appointment provider. Sign off status: Pending * Provider: Carmita Dominguez MD Date: 10/16/2023 Generated for Grey montez/Jazmin/eTvolodymyritting on: 12/08/2024 07:27 AM EDT
--- OUTSIDE RECORDS SUMMARY | 2024-02-12 11:40 | XMS_ITS ---
Author Organization [facility] Address [address] [place] [phone] Care Team Providers Care Auto Porter Name Role Phone Oksana MOSS, Manuel Primary Care Provider Unavailab Manuel Eubanks [phone] REASON FOR VISIT Patient presents today for a colon screening Encounters Encounter Location Date Provider Diagnosis [facility] [address] [place] [phone] 02/12/2024 Manuel Dominguez Plan Of Treatment No Information Progress Notes * KAT WOLFEEDOB:1955 (68 yo F)Acc No.[id number]:02/12/2024 Progress Notes Patient: NUNU GREGG Provider: Carmita Dominguez MD :1955 A ge:68 Y S ex:Female Date:02/12/2024 Address:[address] [place] [address] [id number] Pcp:Manuel Gandhi MD Subjective: * Chief Complaints: [...] 04/13/2023 Generated for Grey montez/Jazmin/eTransmitting on: 0 12/08/2024 07:27 AM EDT
--- OUTSIDE RECORDS SUMMARY | 2024-09-29 06:30 | XMS_ITS ---
Author Organization Manuel Gandhi III, MD Address [address] [place] [address] Care Team Providers Care Manager Sourcing Name Role Phone Manuel Gandhi Primary Care Provider [phone] Allergies Allergen (clinical drug ingredient) Drug/Non Drug Allergy documented on EMR Reaction Allergy Type Onset Date Status codeine Codeine Sulfate hives Drug Allergy A ctive REASON FOR VISIT Severe chronic cough, Hiatal hernia, Obesity to, GERD, Hyperlipidemia., depression, Lumbar radiculopathy, Hypertension Medications Medication SIG (Take, Route, Frequency, Duration) Notes Start Date End Date Status Benzonatate 200 MG 1 capsule as needed Orally Three times a day 09/22/2024 Active predniSONE 20 MG 1 tablet Orally Once a day 05/19/2024 Active Triamcinolone Acetonide 0.1 % 1 application Externally Two times a day 05/19/2024 Active Metoprolol Succinate ER 25 MG 1 tablet Orally Once a day 06/04/2023 Active Ondansetron HCl 4 MG 1 tablet Orally silvana ry four hours prn nausea 04/01/2023 Active predniSONE 20 MG 1 tablet with food o r milk Orally Once a day for 10 days 09/29/2024 10/19/2024 Active Omeprazole 40 MG TAKE 1 CAPSULE BY MO UTH 30 MINUTES BEFORE MORNING MEAL EVERY DAY FOR 30 DAYS Active LORazepam 0.5 MG 1 tablet at bedtime as needed Orally Twice a day 05/18/2021 Active FLUoxetine HCl 20 MG TAKE 1 CAPSULE BY M OUTH EVERY DAY Active Social History Tobacco Use: Social History Observation Description Date Details (start date - stop date) Former Smoker NA - NA Tobacco Use/Smoking Question Answer Notes Patient is a former smoker How long has it been since you last smoked? > 10 years Additional Findings: Tobacco Non-User Ex-cigaret te smoker Problems Problem Type SNOMED Code ICD Code Onset Dates Problem Status W/U Status Risk Notes Problem [id number] Acute cough (R05.1) Active confirmed I have added prednisone and ibuprofen today with a followup visit. Vital Signs Temperature 98 degrees Fahrenheit 09/29/2024 Blood pressure systolic 142 mm Hg 09/30/19 25 Blood pressure diastolic 78 mm Hg 025 Heart Rate 71 /min 09/29/2024 Height 61 in 09/29/2024 Weight 169 lbs 09/29/2024 BMI 31.93 kg/m2 09/29/2024 Encounters Encounter Location Date Provider Diagnosis Manuel Gandhi III, MD [address] [place] [address] [place] [address] 09/29/2024 Manuel Gandhi Former smoker Z87.89 1 ; Acute cough R05.1 ; Obesity, unspecified classification, unspecified obesity type, unspecified whether serious comorbidity present E66.9 ; Gastroesophageal reflux disease without esophagitis K21.9 and Major depressive disorder with single episode, in full remission F32.5 Assessments Encounter Date Diagnosis (ICD Code) Assessment Notes Treat ment Notes Treatment Clinical Notes 09/29/2024 Former smoker (ICD-1 0 - Z87.891) She is highly motivated not to smoke. We discussed a strategy to prevent relapse in times of stress and illness. 09/29/2024 Acute cough (ICD-10 - R05.1) I have added prednisone and ibuprofen today with a followup visit. 09/29/2024 Obesity, unspecified classification, unspecified obesity type, unspecified whether serious comorbidity present (ICD-10 - E66.9) Her body mass index is 31.9. I recommended stabilizing her weight at this level until the issue of cholecystitis has been resolved and then aggressive weight loss A1 amp per week. 09/29/2024 Gastroesophageal reflux disease without esophagitis (ICD-10 - K21.9) She will continue on omeprazole on a when necessary basis. She has a hiatal hernia seen on her chest x-ray. 09/29/2024 Major depressive disorder with single episode, in full remission (ICD-10 - F32.5) She has a history of an episode of major depression. Her current anxiety stems from this. Fluoxetine has helped her in the past and was restarted today. Plan Of Treatment Medication Medication Name Sig Start Date Stop Date Notes Benzonatate 200 MG 1 capsule as needed Orally Three times a day 09/22/2024 predniSONE 20 MG 1 tablet Orally Once a day 05/19/2024 Triamcinolone Acetonide 0.1 % 1 applicat ion Externally Two times a day 05/19/2024 Metoprolol Succinate ER 25 MG 1 tablet Orally Once a day 0 06/04/2023 Ondansetron HCl 4 MG 1 tablet Orally silvana ry four hours prn nausea 04/01/2023 predniSONE 20 MG 1 tablet with food o r milk Orally Once a day for 10 days 09/29/2024 10/19/2024 Omeprazole 40 MG TAKE 1 CAPSULE BY MO UT 30 MINUTES BEFORE MORNING MEAL EVERY DAY FOR 30 DAYS LORazepam 0.5 MG 1 tablet at bedtime as needed Orally Twice a day 05/18/2021 FLUoxetine HCl 20 MG TAKE 1 CAPSULE BY M [facility] EVERY DAY Next Appt Details Follow Up: 2 Weeks, Reason: ov Provider Name:Manuel Gandhi, 12/16/2024 10:15:00 AM, [address] [place] [address] [address], [place], [phone], Provider Name:Manuel Gandhi, 10/27/2025 03:00:00 PM, [address] [place] [address] [address], [place], [phone], Progress Notes * Minerva PINEDAeDOB:1955 (68 yo F)Acc No.[id number]:09/29/2024 Progress Notes Patient: Shae GREGG Provider: Carmita Gandhi MD :1955 A ge:68 Y S ex:Female Date:09/29/2024 Address:[address] [place] [address] [phone] Subjective: * Chief Complaints: * S evere chronic coughHiatal herniaObesity toGERDHyperlipidemia.DepressionLumbar radiculopathyHypertension * HPI: C OVID-19 Screening: She returns complaining of coughing loudly and continuously day and night. She coughed repeatedly during the entire visit today. She said 2 chest x-rays that showed no cause of coughing. She cannot take codeine due to side effects. She is currently taking a cough suppressant with dextromethorphan and benzoin 88 and using inhale steam. Today I have added prednisone and ibuprofen hoping both we cut down on tracheal endobronchial inflammation that is triggering cough reflex. She was reassured that she would soon get better. Questions H ave you had any new onset fever, chills, cough, congestion, sore throat, shortness of breath, muscle aches? N o * ROS: G eneral/Constitutional: pain o nly normal aches and pains. C hills d enies.?Fatigue a dmits. F ever d enies. E NT: Decreased hearing d enies. R espiratory: Cough w orse at night. C ardiovascular: Chest pain with exertion d enies. D yspnea on exertion?denies. S hortness of breath d enies. G astrointestinal: Constipation o ccasional. D ecreased appetite d enies. D iarrhea d enies. H eartburn c ontrolled with medications. N ausea d enies. R ectal bleeding d enies. V omiting d enies. H ematology: bruising d enies. p etechiae d enies. S wollen glands n one have been noted. G enitourinary: Frequent urination d enies. M usculoskeletal: Muscle aches d enies. P ainful joints d enies. S ciatica d enies. W eakness d enies. S kin: Itching d enies. R jose carlos d enies. S kin lesion(s)?denies. N eurologic: Difficulty speaking d enies. D izziness d enies.?Headache d enies. L ow back pain d enies. P sychiatric: Depressed mood d enies. * Medical History: * Surgical History: W isdom teeth X4 extraction Tonsillectomy tubal ligation biopsy right breast benign disease left knee arthroscopy after a fall Gall stones holecystectomy, Dr. Kohli, [facility], cholelithiasis 03/2020No history * Hospitalization/Major Diagno stic Procedure: N o history * Family History: F ather: 67 yrs, Alcoholism, diabetes mellitus, hypertension, stroke, diagnosed with DM, HTN. M other: 85 yrs, Hypertension, stroke, several mini strokes, breast cancer, diagnosed with Cancer, HTN, CVD. S iblings: alive. P aternal Grand Father: , diagnosed with Cancer. P aternal uncle: , diagnosed with Cancer. 1 brother(s) , 3 sister(s) - healthy. 1 son(s) , 1 daughter(s) - healthy. . Paternal Grandfather Dx with CA. Paternal Uncle [...] hereditary cancer in the family. 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 She is and has 2 children, Kate and Timmy, a daughter and a son. She has 5 grandchildren. * Medications: T akingBenzonatate 200 MG Capsule 1 capsule as needed Orally Three times a day , stop date 10/12/2024Omeprazole 40 MG Capsule Delayed Release TAKE 1 CAPSULE BY MOUTH 30 MINUTES BEFORE MORNING MEAL EVERY DAY FOR 30 DAYS FLUoxetine HCl 20 MG Capsule TAKE 1 CAPSULE BY MOUTH EVERY DAY LORazepam 0.5 MG Tablet 1 tablet at [...] 1 application Externally Two times a day Taking Benzonatate 200 MG Capsule 1 capsule as needed Orally Three times a day , stop date 10/12/2024Taking Omeprazole 40 MG Capsule Delayed Release TAKE 1 CAPSULE BY MOUTH 30 MINUTES BEFORE MORNING MEAL EVERY DAY FOR 30 DAYS Taking FLUoxetine HCl 20 MG Capsule TAKE 1 CAPSULE BY MOUTH EVERY DAY Taking LORazepam 0.5 MG Tablet 1 tablet [...] 1 application Externally Two times a day DiscontinuedAzithromycin 250 MG Tablet like directed Orally 2 Tablets on the first day, one tablet the rest of the days Medication List reviewed and reconciled with the patientDiscontinued Azithromycin 250 MG Tablet like directed Orally 2 Tablets on the first day, one tablet the rest of the days Medication List reviewed and reconciled with the patient * Allergies: C odeine Sulfate: hives - Allergyno[Allergies Verified] Objective: * Vitals: H t: 61, Wt:169, BMI:31.93, BP:142/78, HR:71, Temp:98, Ht-cm: 154.94, Wt-k.66. * Examination: G eneral Examination: GENERAL APPEARANCE: p leasant, well nourished, well developed, in no acute distress, calm and relaxed, obese, woman. HEAD: a traumatic, normocephalic. EYES: e carmen, perrla, anicteric, conjugate. EARS: n ormal. NOSE: s eptum intact. ORAL CAVITY: n ormal, unremarkable. NECK/THYROID: n o jugular venous distention, no carotid bruit, thyroid normal. LYMPH NODES: n o enlarged lymph nodes,spleen normal. SKIN: n o suspicious lesions, anicteric. HEART: n o clicks, gallops, murmurs, or rubs, regular rhythm, S1, S2 normal, no s3, or vascular bruits. LUNGS: c lear to auscultation . BREASTS: N ot examined. ABDOMEN: b owel sounds normal, no ascites, no organomegaly, no mass. RECTAL EXAM: n ot examined. MUSCULOSKELETAL: e xtremities unremarkable, no clubbing, cyanosis or edema. PERIPHERAL PULSES: n ormal. NEUROLOGIC: a lert and oriented, cranial nerves 2-12 grossly intact, deep tendon reflexes 2+ symmetrical, motor strength normal upper and lower extremities, sensory exam intact. PSYCH: a lert, oriented. Assessment: * Assessment: 1. A cute cough - R05.1 (Primary) N otes :I have added prednisone and ibuprofen today with a followup visit. 2 . F ormer smoker - Z87.891 N otes :She is highly motivated not to smoke. We discussed a strategy to prevent relapse in times of stress and illness. 3 . O besity, unspecified classification, unspecified obesity type, unspecified whether serious comorbidity present - E66.9 N otes :Her body mass index is 31.9. I recommended stabilizing her weight at this level until the issue of cholecystitis has been resolved and then aggressive weight loss A1 amp per week. 4 . G astroesophageal reflux disease without esophagitis - K21.9 ?Notes :She will continue on omeprazole on a when necessary basis. She has a hiatal hernia seen on her chest x-ray. 5 . M ajor depressive disorder with single episode, in full remission - F32.5? Notes :She has a history of an episode of major depression. Her current anxiety stems from this. Fluoxetine has helped her in the past and was restarted today. Plan: * Treatment: 2. O thers Continue Benzonatate Capsule, 200 MG, 1 capsule as needed, Orally, Three times a day. * Procedure Codes: * Preventive Medicine: Counseling: C are goal follow-up plan: Counseling for abnormal BMI given Y es Above Normal BMI Follow-up D ietary management education, guidance, and counseling, Dietary needs education, Exercise promotion: strength training, Exercise promotion: stretching, Feeding regime, Giving encouragement to exercise, Lifestyle education regarding diet, Nutrition / feeding management, Nutrition therapy, Prescribed activity/exercise education, Prescribed diet education, Prescribed dietary intake, Special diet education, Weight monitoring , Intervention, Order not done: Medical or Other reason not done S moking/Tobacco Use Patient counseled on the dangers of tobacco use and urged to quit. 0 09/29/2024 * Follow Up: 2 Weeks (Reason: ov) * Images: * Sign off status: Completed true * Provider: Carmita Gandhi MD Date: 0 09/29/2024 Generated for Grey montez/Jazmin/eTchinyeresmitting on: 0 12/08/2024 07:26 AM EDT History and Physical Notes * HPI (History of Present Illness) Category Sub-Category Detail Notes COVID-19 Screening Questions Have you had any new onset fever, chills, cough, congestion, sore throat, shortness of breath, muscle aches?: No Examination Category Sub-Category Detail Notes General Examination GENERAL APPEARANCE: pleasant , well nourished, well developed, in no acute distress, calm and relaxed, obese, woman HEAD: atraumatic, normocep halic EYES: eomi, perrla, [...] lesion s, anicteric PERIPHERAL PULSES: normal BREASTS: Not examined MUSCULOSKELETAL: extremities unremark able, no clubbing, cyanosis or edema LYMPH NODES: no enlarged lymph no ta,spleen normal RECTAL EXAM: not examined PSYCH: alert, oriented ORAL CAVITY: normal, unremarkable
--- OUTSIDE RECORDS SUMMARY | 2024-10-09 10:30 | XMS_ITS ---
Author Organization Manuel Gandhi III, MD Address [address] [address] Care Team Providers Care Investment Consultant Name Role Phone Manuel Gandhi Primary Care Provider [phone] Allergies Allergen (clinical drug ingredient) Drug/Non Drug Allergy documented on EMR Reaction Allergy Type Onset Date Status codeine Codeine Sulfate hives Drug Allergy A ctive REASON FOR VISIT Telehealth Medications Medication SIG (Take, Route, Frequency, Duration) Notes Start Date End Date Status Metoprolol Succinate ER 25 MG 1 tablet Orally Once a day 06/04/2023 Active Benzonatate 200 MG 1 capsule as needed Orally Three times a day 09/22/2024 Active Triamcinolone Acetonide 0.1 % 1 application Externally Two times a day 05/19/2024 Active predniSONE 20 MG 1 tablet with food o r milk Orally Once a day 09/29/2024 Active predniSONE 20 MG 1 tablet Orally Once a day 05/19/2024 Active FLUoxetine HCl 20 MG TAKE 1 CAPSULE BY M OUTH EVERY DAY Active Omeprazole 40 MG TAKE 1 CAPSULE BY MO UTH 30 MINUTES BEFORE MORNING MEAL EVERY DAY FOR 30 DAYS Active Ondansetron HCl 4 MG 1 tablet Orally silvana ry four hours prn nausea 04/01/2023 Active LORazepam 0.5 MG 1 tablet at bedtime as needed Orally Twice a day 05/18/2021 Active Social History Tobacco Use: Social History Observation Description Date Details (start date - stop date) Former Smoker NA - NA Tobacco Use/Smoking Question Answer Notes Patient is a former smoker How long has it been since you last smoked? > 10 years Additional Findings: Tobacco Non-User Ex-cigaret te smoker Vital Signs Height 61 in 10/09/2024 Weight 169 lbs 10/09/2024 BMI 31.93 kg/m2 10/09/2024 ended Encounters Encounter Location Date Provider Diagnosis Manuel Gandhi III, MD [address] [place] [address] [address] [place], [place] [id number] 10/09/2024 Manuel Gandhi Former smoker Z87.89 1 ; Acute bronchitis due to other specified organisms J20.8 ; Obesity, unspecified classification, unspecified obesity type, unspecified whether serious comorbidity present E66.9 ; Gastroesophageal reflux disease without esophagitis K21.9 ; Major depressive disorder with single episode, in full remission F32.5 ; Essential hypertension I10 and Vitamin D deficiency E55.9 Assessments Encounter Date Diagnosis (ICD Code) Assessment Notes Treat ment Notes Treatment Clinical Notes 10/09/2024 Former smoker (ICD-1 0 - Z87.891) She is highly motivated not to smoke. We discussed a strategy to prevent relapse in times of stress and illness. 10/09/2024 Acute bronchitis due to other specified organisms (ICD-10 - J20.8) He is recovering and feels much better. The cough has resolved and she is now wheezing. Current therappy will continue. 10/09/2024 Obesity, unspecified classification, unspecified obesity type, unspecified whether serious comorbidity present (ICD-10 - E66.9) Her body mass index is 31.9. I recommended stabilizing her weight at this level until the issue of cholecystitis has been resolved and then aggressive weight loss A1 amp per week. 10/09/2024 Gastroesophageal reflux disease without esophagitis (ICD-10 - K21.9) She will continue on omeprazole on a when necessary basis. She has a hiatal hernia seen on her chest x-ray. 10/09/2024 Major depressive disorder with single episode, in full remission (ICD-10 - F32.5) She has a history of an episode of major depression. Her current anxiety stems from this. Fluoxetine has helped her in the past and was restarted today. 10/09/2024 Essential hypertensi on (ICD-10 - I10) She was instructed to resume taking the metoprolol. A follow-up visit was given her. She was told to call me if she begins to feel dizzy again. 10/09/2024 Vitamin D deficiency (ICD-10 - E55.9) Vitamin D level is 29. No change in her therapy was made. Plan Of Treatment Medication Medication Name Sig Start Date Stop Date Notes Metoprolol Succinate ER 25 MG 1 tablet Orally Once a day 0 06/04/2023 Benzonatate 200 MG 1 capsule as needed Orally Three times a day 09/22/2024 Triamcinolone Acetonide 0.1 % 1 applicat ion Externally Two times a day 05/19/2024 predniSONE 20 MG 1 tablet with food o r milk Orally Once a day 09/29/2024 predniSONE 20 MG 1 tablet Orally Once a day 05/19/2024 FLUoxetine HCl 20 MG TAKE 1 CAPSULE BY M OUTH EVERY DAY Omeprazole 40 MG TAKE 1 CAPSULE BY MO UTH 30 MINUTES BEFORE MORNING MEAL EVERY DAY FOR 30 DAYS Ondansetron HCl 4 MG 1 tablet Orally silvana ry four hours prn nausea 04/01/2023 LORazepam 0.5 MG 1 tablet at bedtime as needed Orally Twice a day 05/18/2021 Next Appt Details Follow Up: As Scheduled, Tarah son: OV Provider Name:Manuel Gandhi, 12/16/2024 10:15:00 AM, [address] [place] [address] [address], [place], [id number], Provider Name:Manuel Gandhi, 10/27/2025 03:00:00 PM, [address] [place] [address] [address], [place], [phone], Progress Notes * Katelynn PINEDAOB:1955 (68 yo F)Acc No.[id number]:10/09/2024 Patient: Shae GERGG Provider: Carmita Gandhi MD :[id number] A ge:68 Y S ex:Female Date:10/09/2024 [address] [id number] Subjective: * Chief Complaints: * T elehealth * HPI: * : This telehealth visit took place over 15 minutes with the patient at home and me in my office. She gave consent for billing. She reports that her cough has resolved and her breathing is now much better with the prednisone. She has stopped wheezing. She is sleeping better and feels more like her old self. Telehealth L ocation of provider rendering services: { ...} [address] [facility] [address] L ocation of patient: vipin irwin listed in demographics for today's visit P atient identification confirmed using: Kvng andrew, SHANELL T elehealth method: T elephone only. Patient not visible to care provider. C onsent: P atient verbally consented to treatment, Patient verbally consented to billing insurance company, Patient informed of any privacy concerns related to method of visit T otal time spent with patient (mins) 1 5 * ROS: G eneral/Constitutional: pain C hest pain checo coughing. C hills d enies.?Fatigue a dmits. F ever d enies. E NT: Decreased hearing d enies. R espiratory: Cough w orse at night. C ardiovascular: Chest pain with exertion o ccurred frequently. D yspnea on exertion d enies. S hortness of breath d enies. G astrointestinal: Constipation o ccasional. D ecreased appetite d enies. D iarrhea d enies. H eartburn d enies. N ausea d enies. R ectal bleeding [...] knee arthroscopy after a fall Gall stones 1cholecystectomy, Dr. Kohli, [facility], cholelithiasis 03/2020No history * Hospitalization/Major Diagno stic Procedure: N o history * Family History: F ather: 67 yrs, Alcoholism, diabetes mellitus, hypertension, stroke, diagnosed with DM, HTN. M other: 85 yrs, Hypertension, stroke, several mini strokes, breast cancer, diagnosed with CVD, Cancer, HTN. S iblings: alive. 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 She is and has 2 children, Kate and Timmy, a daughter and a son. She has 5 grandchildren. * Medications: T akingOmeprazole 40 MG Capsule Delayed Release TAKE 1 [...] Hour 1 tablet Orally Once a day Triamcinolone Acetonide 0.1 % Cream 1 application Externally Two times a day Benzonatate 200 MG Capsule 1 capsule as needed Orally Three times a day predniSONE 20 MG Tablet 1 tablet with food or milk Orally Once a day , stop date 10/19/2024predniSONE 20 MG Tablet 1 tablet Orally Once a day Medication List reviewed and reconciled with the patientTaking Omeprazole 40 MG Capsule Delayed Release TAKE [...] as needed Orally Three times a day Taking predniSONE 20 MG Tablet 1 tablet with food or milk Orally Once a day , stop date 10/19/2024Taking predniSONE 20 MG Tablet 1 tablet Orally Once a day Medication List reviewed and reconciled with the patient * Allergies: C odeine Sulfate: hives - Allergykvng[Allergies Verified] Objective: * Vitals: H t: 61, Wt:169, BMI:31.93, Ht-cm: 154.94, Wt-k.66. ended. Assessment: * Assessment: 1. A cute bronchitis due to other specified organisms - J20.8 (Primary) N otes :He is recovering and feels much better. The cough has resolved and she is now wheezing. C urrent therappy will continue. 2 . F ormer smoker - Z87.891 [...] astroesophageal reflux disease without esophagitis - K21.9 Notes :She will continue on omeprazole on a when necessary basis. She has a hiatal hernia seen on her chest x-ray. 5 . M ajor depressive disorder with single episode, in full remission - F32.5? Notes :She has a history of an episode of major depression. Her current anxiety stems from this. Fluoxetine has helped her in the past and was restarted today. 6 . E ssential hypertension - I10 N otes :She was instructed to resume taking the metoprolol. A follow-up visit was given her. She was told to call me if she begins to feel dizzy again. 7 . V itamin D deficiency - E55.9 N otes :Vitamin D level is 29. No change in her therapy was made. Plan: * Treatment: 2. F ormer smoker Continue Omeprazole Capsule Delayed Release, 40 MG, TAKE 1 CAPSULE BY MOUTH 30 MINUTES BEFORE MORNING MEAL EVERY DAY FOR 30 DAYS; C ontinue FLUoxetine HCl Capsule, 20 MG, TAKE 1 CAPSULE BY MOUTH EVERY DAY; C ontinue LORazepam Tablet, 0.5 MG, 1 tablet at bedtime as needed, Orally, Twice a day; C ontinue Ondansetron HCl Tablet, 4 MG, 1 tablet, Orally, every four hours prn nausea; C ontinue Metoprolol Succinate ER Tablet Extended Release 24 Hour, 25 MG, 1 tablet, Orally, Once a day; C ontinue Triamcinolone Acetonide Cream, 0.1 %, 1 application, Externally, Two times a day; Continue predniSONE Tablet, 20 MG, 1 tablet with food or milk, Orally, Once a day. 3. O thers Continue Benzonatate Capsule, 200 MG, 1 capsule as needed, Orally, Three times a day. * Procedure Codes: 9 8012 SYNCH AUDIO-ONLY EST SF 10 * Preventive Medicine: Counseling: C are goal [...] tobacco use and urged to quit. 0 10/16/2024 * Follow Up: A s Scheduled (Reason: OV) * Images: * Sign off status: Completed true * Provider: Carmita Gandhi MD Date: 0 10/09/2024 Generated for Grey montez/Jazmin/eTransmitting on: 0 12/08/2024 07:26 AM EDT History and Physical Notes * HPI (History of Present Illness) Category Sub-Category Detail Notes Telehealth [facility] ider rendering services:: {...} [address] [facility] [address] Location of patient:: address listed in demographics [...]
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
--- OUTSIDE RECORDS SUMMARY | 2024-11-05 06:00 | XMS_ITS ---
Author Organization Manuel Gandhi III, MD Address [address] [address] Care Team Providers Care Child Care Giver Name Role Phone Manuel Gandhi Primary Care Provider REASON FOR VISIT needs labs order prior to having ct scan at Encounters Encounter Location Date Provider Diagnosis Manuel Gandhi III, MD [address] [place] [address] [place] [address] 11/05/2024 Manuel Gandhi Chronic cough R05.3 and Myalgia M79.10 Assessments Encounter Date Diagnosis (ICD Code) Assessment Notes Treatment Notes Treatment Clinical Notes 11/05/2024 Chronic cough (ICD-10 - R05.3) 11/05/2024 Myalgia (ICD-10 - M79.10) Plan Of Treatment Pending Test Test Name Order Date PROFILE, RANDOM (COMPREHENSIVE METABOLIC ) 11/05/2024 CBC w DIFF 11/05/2024 Next Appt Details Provider Name:Manuel Gandhi, 12/16/2024 10:15:00 AM, [address] [place] [address] [place], [address], Provider Name:Manuel Gandhi, 10/27/2025 03:00:00 PM, [address] [place] [address] [place], [address], Progress Notes * Minerva PINEDAeDOB:1955 (68 yo F)Acc No.[id number]:11/05/2024 Patient: Jennifer Shae FAULKNER :1955 A ge:68 Y S ex:Female Address: [address], [place], [address] Subjective: * Chief Complaints: * n eeds labs order prior to having ct scan at * Medical History: * Surgical History: * Hospitalization/Major Diagno stic Procedure: * Medications: Objective: * Vitals: * Physical Examination: Assessment: * Assessment: 1. C hronic cough - R05.3 2 . M yalgia - M79.10 Plan: * Treatment: 2. M yalgia L AB: PROFILE, RANDOM (COMPREHENSIVE METABOLIC) L AB: CBC w DIFF * Procedure Codes: * true * Date: Generated for Grey montez/Jazmin/eTchinyeresmitting on: 0 12/08/2024 07:27 AM EDT
--- OUTSIDE RECORDS SUMMARY | 2024-11-17 07:15 | XMS_ITS ---
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 Role Phone Manuel Gandhi Primary Care Provider Allergies Allergen (clinical drug ingredient) Drug/Non Drug Allergy documented on EMR Reaction Allergy Type Onset Date Status No Known Food Allergy Unknown Drug Allergy Active codeine Codeine Sulfate hives Drug Allergy A ctive REASON FOR VISIT office visit Medications Medication SIG (Take, Route, Frequency, Duration) Notes Start Date End Date Status Azithromycin 250 MG as directed Orally 2 Tablets on the first day, one tablet the rest of the days 10/26/2024 Active Benzonatate 200 MG 1 capsule as needed Orally Three times a day 10/26/2024 Active Triamcinolone Acetonide 0.1 % 1 application Externally Two times a day 05/19/2024 Active LORazepam 0.5 MG 1 tablet at bedtime as needed Orally Twice a day 05/18/2021 Active FLUoxetine HCl 20 MG TAKE 1 CAPSULE BY M OUTH EVERY DAY Active Omeprazole 40 MG TAKE 1 CAPSULE BY MO UTH 30 MINUTES BEFORE MORNING MEAL EVERY DAY FOR 30 DAYS Active Social History Tobacco Use: Social History Observation Description Date Details (start date - stop date) Former Smoker NA - NA Tobacco Control (Standard) Question Answer Notes Tobacco use: Former smoker How long has it been since you last smoked? Grea ter than 10 years Additional Findings: Tobacco non-user Ex-cigaret te smoker Encounters Encounter Location Date Provider Diagnosis Manuel Gandhi III, MD [address] [place] [address] [place] [address] 11/17/2024 Manuel Gandhi Former smoker Z87.891 Assessments Encounter Date Diagnosis (ICD Code) Assessment Notes Treatment Notes Treatment Clinical Notes 11/17/2024 Former smoker (ICD-10 - Z87.891) She is highly motivated not to smoke. We discussed a strategy to prevent relapse in times of stress and illness. Plan Of Treatment Medication Medication Name Sig Start Date Stop Date Notes Azithromycin 250 MG as directed Orally 2 Tablets on the first day, one tablet the rest of the days 10/26/2024 Benzonatate 200 MG 1 capsule as needed Orally Three times a day 10/26/2024 Triamcinolone Acetonide 0.1 % 1 applicat ion Externally Two times a day 05/19/2024 LORazepam 0.5 MG 1 tablet at bedtime as needed Orally Twice a day 05/18/2021 FLUoxetine HCl 20 MG TAKE 1 CAPSULE BY M OUTH EVERY DAY Omeprazole 40 MG TAKE 1 CAPSULE BY MO UTH 30 MINUTES BEFORE MORNING MEAL EVERY DAY FOR 30 DAYS Next Appt Details Provider Name:Manuel Gandhi, 12/16/2024 10:15:00 AM, [address] [place] [address] [address], [place], [address], Provider Name:Manuel Gandhi, 10/27/2025 03:00:00 PM, [address] [place] [address] [address], [place], [address], Progress Notes * Minerva PINEDAeDOB:1955 (68 yo F)Acc No.[id number]:11/17/2024 Progress Notes Patient: Shae GREGG Provider: Carmita Gandhi MD :1955 A ge:68 Y S ex:Female Date:11/17/2024 Address:[address] [place] [address], [id number] Subjective: * Chief Complaints: * 1 . Office visit. * HPI: C -19 Screening: Questions H ave you had any [...] of breath d enies. G astrointestinal: Constipation d enies. D ecreased appetite d enies.?Diarrhea d enies. H eartburn d enies. N ausea d enies. R ectal bleeding?denies. V omiting d enies. H ematology: bruising [...] Depressed mood d enies. * Medical History: O besity, Anxiety, Depression, Hyperlipidemia, Former smoker, GERD, Hiatal hernia, Cholelithiasis, pneumonia August 2014, right upper lobe, lingular pneumonia June 2017, Declines colonoscopy, History of cervical radiculopathy, Hiatal hernia, Covid 12 March 2021, Essential hypertension. * Surgical History: W isdom teeth X4 extraction , Tonsillectomy , tubal ligation , biopsy right breast benign disease , left knee arthroscopy after a fall , Gall stones 03/2020, cholecystectomy, Dr. Kohli, [facility], cholelithiasis 03/2020, Hiatal Hernia 2023. * Hospitalization/Major Diagno stic Procedure: N o history . 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 She is and has 2 children, Kate and Timmy, a daughter and a son. She has 5 grandchildren. * Medications: T aking Omeprazole 40 MG Capsule Delayed Release TAKE 1 CAPSULE BY MOUTH 30 MINUTES BEFORE MORNING MEAL EVERY DAY FOR 30 DAYS , Taking FLUoxetine HCl 20 MG Capsule TAKE 1 CAPSULE BY MOUTH EVERY DAY , Taking LORazepam 0.5 MG Tablet 1 tablet at bedtime as needed Orally Twice a day , Taking Triamcinolone Acetonide 0.1 % Cream 1 application Externally Two times a day , Taking Benzonatate 200 MG Capsule 1 capsule as needed Orally Three times a day , stop date 04/23/2025, Discontinued Azithromycin 250 MG Tablet as directed Orally 2 Tablets on the first day, one tablet the rest of the days , Medication List reviewed and reconciled with the patient * Allergies: C odeine Sulfate: hives - Allergy, No Known Food Allergy. Objective: * Vitals: * Examination: G eneral Examination: GENERAL APPEARANCE: p leasant, well nourished, well developed, in no acute distress, calm and relaxed. HEAD: a traumatic, normocephalic. EYES: e carmen, [...] LUNGS: c lear to auscultation . BREASTS: no masses palpable bilaterally. ABDOMEN: b [...] a lert, oriented. Assessment: * Assessment: 1. F abner smoker - Z87.891 N otes :She is highly motivated not to smoke. We discussed a strategy to prevent relapse in times of stress and illness. Plan: * Treatment: * Images: * The named appointment provid er may or may not be the originator of this progress note, and it is not deemed complete until electronically signed by the appointment provider. Sign off status: Pending * Provider: Carmita Gandhi MD Date: 0 11/17/2024 Generated for Grey montez/Jazmin/eTransmitting on: 0 12/08/2024 [...]
--- NOTE | ~2024-12-08 | CT_ITS ---
CLINICAL HISTORY: FORMER SMOKER, CHRONIC COUGH CT chest with contrast Comparison: 03/13/2023 Findings: Status post left diaphragm hernia repair. Small hiatal hernia noted. Probable linear scar in lingula. Stable left lower lobe scarring noted. 3 mm posterior inferior left lower lobe nodule. Posteromedial left atelectasis or pleural scarring. Recommend 12 month follow-up chest CT. No significant mediastinal adenopathy. No significant free pleural fluid. No significant focal bony abnormalities. Impression: Multifocal left scarring Left basilar pleural scar versus atelectasis 3 mm posterior inferior left lower lobe nodule Recommend 12 month follow-up CT No acute processes This document has been electronically signed by: Hugo Aguilar MD on 12/08/2024 20:47:16
--- OUTSIDE RECORDS SUMMARY | 2024-12-08 07:27 | XMS_ITS | Clinical Summary ---
Author Organization [facility] Address [address] [place] [address] Phone Care Team Providers Care Web Specialist Name Role Phone Manuel Gandhi MD Primary Care Provider [phone] Encounters Date Type Department Care Team Description 10/13/2024 7:57 AM EDT - 10/13/2024 11:59 PM EDT Hospital Encounter [facility] [address] [place] [address] Encounter for screening mammogram for breast cancer Discharge Disposition: Home or Self Care from Last 3 Months Family History Medical History Relation Name Comments Breast cancer Mother Relation Name Status Comments Mother Social History Tobacco Use Types Packs/Day Years Used Date Smoking Tobacco: Never Assessed Comments No Sex and Gender Information Value Date Recorded Sex Assigned at Female 07/02/2024 12:58 PM EDT Legal Sex Female 10:23 PM EST Gender Identity Female 07/02/2024 12:58 PM EDT Sexual Orientation Straight 07/02/2024 12 :58 PM EDT Obstetrics History Para Term AB IAB SAB Ectopic Multiple Livin g Live Births 2 Last Filed Vital Signs Vital Sign Reading Time Taken Comments Blood Pressure - - Pulse - - Temperature - - Respiratory Rate - - Oxygen Saturation - - Inhaled Oxygen Concentration - - Weight 72.6 kg (160 lb) 10/13/2024 8:25 AM EDT Height 154.9 cm (5' 1 ) 10/13/2024 8:25 AM EDT Body Mass Index 30.23 10/13/2024 8:25 AM EDT Plan of Treatment Health Maintenance Due Date Last Done Comments DTaP,Tdap,and Td Vaccines (1 - Tdap) 1976 Pneumococcal Vaccine: 50+ Years (1 of 1 - PCV) 12/12/2007 Zoster Vaccines (1 of 2) 12/12/2007 Cholesterol Screening (Lipid Panel) 02/24/2022 Colorectal Cancer Screening: Colonoscopy 02/24/2022 Hepatitis C Screening 02/24/2022 Osteoporosis Screening (Bone Density Screening) 02/24/2022 Social Influencers of Health Screening 02/24/2022 Falls Risk Assessment 2022 Depression Screening 03/25/2024 Hypertension/CHF/CAD Annual BMP Blood Test 10/14/2024 COVID-19 Vaccine (1 - 2023-2 5 season) 2024 Influenza Vaccine (#1) 2024 Breast Cancer Screening 10/13/2026 10/14/19 25, 07/10/2021, 12/29/2019 RSV Immunization Adult Patients (1 - 1-dose [...] Procedure Name Priority Date/Time Associated Diagnosis Comments MG MAMMO DIGITAL SCREENING W TIMBO BILAT Routine 10/13/2024 8:27 AM EDT Encounter for screening mammogram for breast cancer from Last 3 Months Results * MG Mammo Digital Screening w Timbo bilat (10/13/2024 8:27 AM EDT) Anatomical Region Laterality Modality Breast Bilateral Mammography 10/13/2024 9:46 AM EDT Impressions 10/13/2024 9:48 AM EDT No evidence of breast malignancy. BI-RADS CATEGORY: 1 - NEGATIVE RECOMMENDATION: Screening bilateral mammogram is recommended in 1 year. Mammo Location: [facility], [address] [place] [address], [address], . -------- FINAL REPORT -------- Dictated By: Carolin Mack Dictated Date: 10/13/2024 09:46 ET Assigned Physician: Carolin Mack Reviewed and Electronically Signed By: Carolin Mack Signed Date: 10/13/2024 09:48 ET Workstation ID: [id number] Transcribed By: Self Edit Transcribed Date: 10/13/2024 09:46 ET Narrative 10/13/2024 9:48 AM EDT CLINICAL: 68 years old, Female, routine annual exam. COMPARISON: 07/10/2021, 12/29/2019 and 02/28/2016 TECHNIQUE: Bilateral MLO and CC views were obtained digitally with 3-D mammogram (digital breast tomosynthesis). Computer-aided detection was utilized in evaluation of this exam (CAD). FINDINGS: There is no evidence of suspicious mass or architectural distortion. No worrisome calcifications are evident. There has been no significant change from prior exam(s). BREAST DENSITY: B - There are scattered areas of fibroglandular density. Procedure Note Carolin Mack MD - 10/13/2024 CLINICAL: 68 years old, Female, routine annual exam. COMPARISON: 07/10/2021, 12/29/2019 and 02/28/2016 TECHNIQUE: Bilateral MLO and CC views were obtained digitally with 3-Dmammogram (digital breast tomosynthesis). Computer-aided detection wasutilized in evaluation of this exam (CAD). FINDINGS: There is no evidence of suspicious mass or architectural distortion. Noworrisome calcifications are evident. There has been no significantchange from prior exam(s). BREAST DENSITY: B - There are scattered areas of fibroglandular density. IMPRESSION: No evidence of breast malignancy. BI-RADS CATEGORY: 1 - NEGATIVE RECOMMENDATION: Screening bilateral mammogram is recommended in 1 year. Mammo Location: [facility], [address], [place], [address], . -------- FINAL REPORT -------- Dictated By: Carolin Mack Dictated Date: 10/13/2024 09:46 ET Assigned Physician: Carolin Mack Reviewed and Electronically Signed By: Carolin Mack Signed Date: 10/13/2024 09:48 ET Workstation ID: [id number] Transcribed By: Self Edit Transcribed Date: 10/13/2024 09:46 ET Manuel Gandhi MD IMG BI PROCEDURES Final Result from Last 3 Months Insurance MEDICARE [facility] [address] [place] [address] Care Teams Web Specialist Relationship Specialty Start Date End Date Manuel Gandhi MD PCP - General Oncology 03/19/24
--- OUTSIDE RECORDS SUMMARY | 2024-12-08 07:28 | XMS_ITS | Patient Health Record ---
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 Name Role Phone Manuel Gandhi MD Primary Care Provider Unavailab Manuel Eubanks Unavailable [phone] Reason For Referral No Information Encounters Encounter Location Date Provider Diagnosis [facility] [address] [place] [address] 02/12/2024 Manuel Dominguez Plan Of Treatment No Information Insurance Providers Payer Name Payer Address Payer Phone Subscriber Number Group Number Insured Name Patient Relationship to Insured Coverage Start Date Coverage End Date [facility] [address] [place] [address] [id number] NUNU WOLFE Self - patient is the insured MEDICARE OF [facility] [address] [place], [place] [id number] NUNU WOLFE Self - patient is the insured
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
[2024-12-08] MEDS: iohexoL 350 MG/ML 100 ML INFUS..BTL IV (07:40)
[2024-12-08 13:27] LABS: Creatinine POC 0.9 mg/dL (0.5-1.4); GFR POC > 60
== END 2024-12-08 07:26 | disposition home or self-care (01) ==
LOC: HO.CT 07:25
PROVIDERS: PCP Internal Medicine Medical Oncology; Visit Provider Internal Medicine Medical Oncology
DX: R05.3 Chronic cough (principal); Z87.891 Personal history of nicotine dependence
CPT/HCPCS: 71260; 82565; Q9967

== ENCOUNTER → 2024-12-08 07:28 | Outpatient (BNV) | payer OTHER, SELFPAY | PROVIDERS: PCP Internal Medicine Medical Oncology; Visit Provider Radiology Diagnostic Radiology | DX: R91.1 Solitary pulmonary nodule (principal) | CPT/HCPCS: 71260 ==